=== PATIENT | female | born 1940 | race Caucasian/White ===

== ENCOUNTER 2021-04-20 18:25 | Inpatient (IN) | payer OTHER ==
--- OUTSIDE RECORDS SUMMARY | 2021-04-20 18:29 | XMS REPORT | Continuity of Care Document ---
:1940 Author Organization [facility] t Address [address] [place] [address] Dr. [address] [place] [address] Care Team Providers Name Role Phone Jia-Manav_A_AH Attending Clinician Unavailable Antonio Freedman MD Attending Clinician Doctor Unassigned, Name Attending Clinician Unavailable Andreas Naranjo MD Attending Clinician Station, Heart Attending Clinician Unavailable 1, Lab Attending Clinician Unavailable Magaly_ESTRELLA Admitting Clinician Unavailable Antonio Freedman MD Admitting Clinician Payers Payer Name Policy Type Policy Number Effective Date Expiration Date S [facility] [place] - [id number] 2019 [place] 00:00:00 (MEDICARE REPLACEMENT/ADVANT AGE - HMO) Problems Condition Condition Condition Status Onset Resolution Last Treating Co mments Source Name Details Category Date Date Treatment Clinician Date Post-op Post-op Disease Active Univers pain pain 9-18 ity of 00:00: [place] 00 Medical Branch Allergies, Adverse Reactions, Alerts Allergy Allergy Status Severity Reaction(s) Onset Inactive Treating Comm ents Source Name Type Date Date Clinician Aspirin Propensi Active Rash Univers ty to 302 ity of adverse 00:00: [place] reaction 00 Medical s Branch Clindamy Propensi Active Nausea Univer s caron ty to and/or 3- ity of adverse Vomiting 00:00: [place] reaction Medical s Branch Codeine Propensi Active Nausea Univers ty to and/or 3 ity of adverse Vomiting 00:00: [place] reaction Medical s Branch Iodine Propensi Active Rash Univers ty to 3-02 ity of adverse 00:00: [place] reaction Medical s Branch Penicill Propensi Active Rash Univer s ins ty to 06-02 ity of adverse 00:00: [place] reaction 00 Medical s Branch Social History Social Habit Start Date Stop Date Quantity Comments Source Alcohol intake [facility] Sex Assigned At Uni versity [facility] Smoking Status Start Date Stop Date Source Never smoker [facility] Medications Ordered Filled Start Stop Current Ordering Indication Dosage Frequency Signature Comments Components Source Medication Medication Date Date Medication? Clinician (SIG) Name Name amLODIPine 2019- No 10mg Take 10 mg Univers (NORVASC) 12-20 by mouth ity o f 10 mg 21:38: 00:00 daily. [place] tablet 32 :00 Medical Branch ferrous 2019- No 325mg Take 325 Univ ers sulfate 325 12-20 mg by ity of mg (65 mg 21:38: 00:00 mouth [place] iron) 32 :00 daily. Medical tablet Branch Cholecalcif 2019- No 2000U Take 2,000 Univers sary, 12-20 Units by ity of Vitamin D3, 21:38: 00:00 [place] 2,000 [place] 32 :00 daily. Medical capsule Branch vit 2019- No 1{tbl} Take 1 Univers C/E/Zn/eugene 12-20 tablet by it y of r/lutein/ze 21:38: 00:00 [place] 2 [place] axan 32 :00 (two) Medical (PRESERVISI times Branch ON AREDS-2 daily. ORAL) PARoxetine 2019- No 10mg Take 10 mg Univers 10 mg 12-20 by mouth ity of tablet 21:38: 00:00 daily. [place] 32 :00 Medical Branch famotidine 2019- No 10mg Take 10 mg Univers 10 mg 12-20 by mouth ity of tablet 21:38: 00:00 daily. [place] 32 :00 Medical Branch multivit-mi 2019- No 1{tbl} Take 1 U nivers n/iron/foli 12-20 tablet by it y of c/lutein 21:38: 00:00 mouth [place] (CENTRUM 32 :00 daily. Medical SILVER Branch WOMEN ORAL) calcium 2019- No 1{tbl} Take 1 Unive rs carbonate/v 12-20 tablet by it y of itamin D2 21:38: 00:00 mouth [place] (CALCIUM 32 :00 daily. Medical 600 + D Branch ORAL) Cranberry 2019- No 1{capsu Take 1 Un nancy 500 mg Cap 12-20 le} capsule by it y of 21:38: 00:00 mouth [place] 32 :00 daily. Medical Branch traMADol 50 2019- No 50mg Take 50 mg Univers mg tablet 12-20 by mouth ity o f 21:38: 00:00 as needed. [place] 32 :00 Medical Branch ibuprofen 2019- No 600mg Take 600 Un nancy 600 mg 12-20 mg by ity of tablet 21:38: 00:00 mouth 3 [place] 32 :00 (three) Medical times Branch daily as needed. PARoxetine Yes 10mg 10 mg, Unive rs (PAXIL) 12-20 Oral, ity of tablet 10 14:00: DAILY, [place] mg 00 First dose Medical on Mon Branch 12/20/18 at 0900, Until Discontinu ed, Routine amLODIPine Yes 10mg 10 mg, Unive rs (NORVASC) 12-20 Oral, ity of tablet 10 14:00: DAILY, [place] mg 00 First dose Medical on Mon Branch 12/20/18 at 0900, Until Discontinu ed, Routine phenytoin Yes 200mg 200 mg, Univ ers Extended 12-20 Oral, BID, ity o f (DILANTIN 01:00: [place] KAPSEAL[place] 00 on Mon Medical capsule 200 12/19/18 at Br anch mg 1999, Until Discontinu ed, Routine docusate Yes 100mg 100 mg, Unive rs (COLACE) 12-20 Oral, ity of capsule 100 01:00: Q12H, [place] mg 00 First dose Medical on Mon Branch 12/19/18 at 2000, Until Discontinu ed, Routine enoxaparin Yes 30mg 30 mg, Unive rs (LOVENOX) 12-20 Subcutaneo ity of injection 01:00: us, Q12H, [place] 30 mg 00 First dose Medical on Mon Branch 12/19/18 at 2000, Until Discontinu ed, Routine lansoprazol 2018- No 30mg Take 30 mg Univers e 12-19 by mouth ity of (PREVACID) 17:53: 00:00 daily. [place] 30 mg 57 :00 Medical capsule Branch HYDROmorpho 0 Yes .5mg 0.5 mg, Uni vers ne 12-19 Slow IV ity of (DILAUDID) 14:37: Push, [place] injection 01 [id number], Medica l 0.5 mg 10 doses, Branch Starting 12/19/18 at 0937, Until Discontinu ed, Routine, Pain (scale 7-10), PACU
Us e approved by (Faculty): ADC PROVIDER ondansetron 2018-0 Yes 4mg 4 mg, Slow Univers (ZOFRAN 12-19 IV Push, ity of (PF)) 14:37: PRN, 1 [place] injection 4 01 dose, Medical mg Starting Branch 12/19/18 at 0937, Until Discontinu ed, Routine, Nausea and Vomiting (N/V), PACU diphenhydrA 2018-0 Yes 25mg 25 mg, Univ ers MINE 12-19 Oral, ity of (BENADRYL) 14:34: Q4HPRN, [place] tablet 25 42 Starting Medica l mg Wed Branch 12/19/18 at 0934, Until Discontinu ed, Routine, Itching HYDROcodone 2018-0 Yes 1{tbl} 1 tablet, Univers -acetaminop -18 Oral, ity of hen (NORCO) 14:33: Q4HPRN, [place] 10-325 mg 54 Starting Medica l tablet 1 Wed Branch tablet 12/19/18 at 0933, Until Discontinu ed, Routine, Pain (scale 7-10) HYDROcodone 2019-0 Yes 1{tbl} 1 tablet, Univers -acetaminop -18 Oral, ity of hen (NORCO 14:33: Q6HPRN, [place] 5) 5-325 mg 51 Starting Medi lexii tablet 1 Wed Branch tablet 12/19/18 at 0933, Until Discontinu ed, Routine, Pain (scale 4-6) ondansetron 2018-0 Yes 4mg 4 mg, Slow Univers (ZOFRAN 18 IV Push, ity of (PF)) 14:33: Q6HPRN, [place] injection 4 03 Starting Medi lexii mg Wed Branch 12/19/18 at 0933, Until Discontinu ed, Routine, Nausea and Vomiting (N/V) sodium Yes PRN, Univers chloride 12-19 Starting ity of 0.9 % 14:00: Wed [place] irrigation 00 12/19/18 at Med ical solution 0900, Branch Until Discontinu ed, Intra-op vancomycin Yes 1.2g 1,200 mg Uni vers (VANCOCIN) 12-19 (1.2 g), ity o f 1,200 mg in 12:00: IV [place] NaCl 0.9% 00 Piggyback, Medi lexii (NS) 250 [address] [facility] [place] piggyback HOLDING ONCE, 1 dose, Starting [facility] 12/19/18 at 0700, Until Discontinu ed, 250 mL
Reas on for Anti-Infec tive: Surgical Prophylaxi s
Surgi lexii Prophylaxi s: Orthopaedi c
Durat ion of therapy: within 24 hours of surgery lactated Yes 1000mL at 100 Unive rs ringers IV 12-19 mL/hr, ity of infusion 11:30: 1,000 mL, [place] 1,000 mL 00 IV Medical Infusion, Branch CONTINUOUS , Starting [facility] 12/19/18 at 0630, Until Discontinu ed, Routine, DSU Pre-op celecoxib 2018- No 400mg 400 mg, Uni vers (CELEBREX) 12-19 Oral, ity of capsule 400 11:30: 11:39 ONCE, 1 [place] mg 00 :00 dose, [facility] Medical 12/19/18 at Branch 0630, Routine, DSU Pre-op
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
Dea ason for Non-Formul gagandeep Use: SPECIFIC INDICATION FOR NONFORMULA RY PRODUCT gabapentin 2019- No 300mg 300 mg, Un nancy (NEURONTIN) 12-19 Oral, ity of capsule 300 11:30: 11:38 ONCE, 1 [place] mg 00 :00 dose, [facility] Medical 12/19/18 at Branch 0630, Routine, DSU Pre-op lansoprazol Yes 30mg Take 30 mg Univers e 12-14 by mouth ity of (PREVACID) 14:49: daily. [place] 30 mg 45 Medical capsule Branch amLODIPine 2019-0 Yes 10mg Take 10 mg U nivers (NORVASC) 9-13 by mouth ity of 10 mg 14:49: daily. [place] tablet 45 Medical Branch lansoprazol 2019-0 Yes 30mg Take 30 mg Univers e 9-13 by mouth ity of (PREVACID) 14:49: daily. [place] 30 mg 45 Medical capsule Branch amLODIPine 20190 Yes 10mg Take 10 mg U nivers (NORVASC) 9-13 by mouth ity of 10 mg 14:49: daily. [place] tablet 45 Medical Branch lansoprazol 20190 Yes 30mg Take 30 mg Univers e 9-13 by mouth ity of (PREVACID) 14:49: daily. [place] 30 mg 45 Medical capsule Branch amLODIPine 0 Yes 10mg Take 10 mg U nivers (NORVASC) 9-13 by mouth ity of 10 mg 14:49: daily. [place] tablet 45 Medical Branch lansoprazol 2019-0 Yes 30mg Take 30 mg Univers e 9-13 by mouth ity of (PREVACID) 14:49: daily. [place] 30 mg 45 Medical capsule Branch amLODIPine 0 Yes 10mg Take 10 mg U nivers (NORVASC) 9-13 by mouth ity of 10 mg 14:49: daily. [place] tablet 45 Medical Branch lansoprazol 2019-0 Yes 30mg Take 30 mg Univers e 9-13 by mouth ity of (PREVACID) 14:49: daily. [place] 30 mg 45 Medical capsule Branch amLODIPine 0 Yes 10mg Take 10 mg U nivers (NORVASC) 9-13 by mouth ity of 10 mg 14:49: daily. [place] tablet 45 Medical Branch lansoprazol 2019-0 Yes 30mg Take 30 mg Univers e 9-13 by mouth ity of (PREVACID) 14:49: daily. [place] 30 mg 45 Medical capsule Branch amLODIPine 2019-0 Yes 10mg Take 10 mg U nivers (NORVASC) 9-13 by mouth ity of 10 mg 14:49: daily. [place] tablet 45 Medical Branch lansoprazol 2019-0 Yes 30mg Take 30 mg Univers e 9-13 by mouth ity of (PREVACID) 14:49: daily. [place] 30 mg 45 Medical capsule Branch amLODIPine Yes 10mg Take 10 mg U nivers (NORVASC) 9-13 by mouth ity of 10 mg 14:49: daily. [place] tablet 45 Medical Branch irbesartan 2018-0 2019- No 300mg Take 300 U nivers 300 mg 9- 09-19 mg by ity of tablet 00:00: 00:00 mouth [place] 00 :00 daily. Medical Branch methylPREDN 2016-0 Yes 84mg Take 21 Uni vers ISolone 3-02 Tabs by ity of (MEDROL, 00:00: mouth [place] JEREMIAH,) 4 mg 00 SEE-INSTRU Med ical tablets CTIONS. Branch follow package directions methylPREDN 2016-0 Yes 84mg Take 21 Uni vers ISolone 3-02 Tabs by ity of (MEDROL, 00:00: mouth [place] JEREMIAH,) 4 mg 00 SEE-INSTRU Med ical tablets CTIONS. Branch follow package directions methylPREDN 2016-0 Yes 84mg Take 21 Uni vers ISolone 3-02 Tabs by ity of (MEDROL, 00:00: mouth [place] JEREMIAH,) 4 mg 00 SEE-INSTRU Med ical tablets CTIONS. Branch follow package directions methylPREDN 2016-0 Yes 84mg Take 21 Uni vers ISolone 3-02 Tabs by ity of (MEDROL, 00:00: mouth [place] JEREMIAH,) 4 mg 00 SEE-INSTRU Med ical tablets CTIONS. Branch follow package directions methylPREDN 2016-0 Yes 84mg Take 21 Uni vers ISolone 3-02 Tabs by ity of (MEDROL, 00:00: mouth [place] JEREMIAH,) 4 mg 00 SEE-INSTRU Med ical tablets CTIONS. Branch follow package directions methylPREDN 2016-0 Yes 84mg Take 21 Uni vers ISolone 3-02 Tabs by ity of (MEDROL, 00:00: mouth [place] JEREMIAH,) 4 mg 00 SEE-INSTRU Med ical tablets CTIONS. Branch follow package directions methylPREDN 2016-0 Yes 84mg Take 21 Uni vers ISolone 3-02 Tabs by ity of (MEDROL, 00:00: mouth [place] JEREMIAH,) 4 mg 00 SEE-INSTRU Med ical tablets CTIONS. Branch follow package directions methylPREDN 2016-0 2019- No 84mg Take 21 Un nancy ISolone 3-02 09-18 Tabs by ity of (MEDROL, 00:00: 00:00 mouth [place] JEREMIAH,) 4 mg 00 :00 SEE-INSTRU [facility] follow package directions celecoxib 20160 Yes Univers (CELEBREX) 2-26 ity of 200 mg 00:00: [place] capsule Medical Branch clopidogrel 2016-0 Yes Univer s (PLAVIX) 75 2-26 ity of mg tablet 00:00: [place] [facility] Branch celecoxib 2016-0 Yes Univers (CELEBREX) 2-26 ity of 200 mg 00:00: [place] capsule Medical Branch clopidogrel 0 Yes Univer s (PLAVIX) 75 2-26 ity of mg tablet 00:00: [place] [facility] Branch celecoxib 2015-0 Yes Univers (CELEBREX) 2-26 ity of 200 mg 00:00: [place] capsule [facility] clopidogrel 2015-0 Yes Univer s (PLAVIX) 75 2-26 ity of mg tablet 00:00: [place] [facility] celecoxib 2016-0 Yes Univers (CELEBREX) 2-26 ity of 200 mg 00:00: [place] capsule [facility] Branch clopidogrel 2015-0 Yes Univer s (PLAVIX) 75 2-26 ity of mg tablet 00:00: [place] 00 Medical Branch celecoxib 2016-0 Yes Univers (CELEBREX) 2-26 ity of 200 mg 00:00: [place] capsule Medical Branch clopidogrel 2016-0 Yes Univer s (PLAVIX) 75 2-26 ity of mg tablet 00:00: [place] [facility] celecoxib 2016-0 Yes Univers (CELEBREX) 2-26 ity of 200 mg 00:00: [place] capsule Medical Branch clopidogrel 2016-0 Yes Univer s (PLAVIX) 75 2-26 ity of mg tablet 00:00: [place] 00 [facility] celecoxib 2016-0 Yes Univers (CELEBREX) 2-26 ity of 200 mg 00:00: [place] capsule 00 Medical Branch clopidogrel 2016-0 Yes Univer s (PLAVIX) 75 2-26 ity of mg tablet 00:00: [place] 00 [facility] Branch celecoxib 2016-0 2019- No Univers (CELEBREX) 2-26 09-18 ity of 200 mg 00:00: 00:00 [place] capsule 00 :00 Medical Branch clopidogrel 2015-0 2019- No Unive rs (PLAVIX) 75 2-26 09-18 ity of mg tablet 00:00: 00:00 [place] 00 :00 Medical Branch traMADOL 0 Yes Univers (ULTRAM) 50 2-25 ity of mg tablet 00:00: Medical Branch traMADOL [id number] Yes Univers (ULTRAM) 50 2-25 ity of mg tablet 00:00: [place] [facility] traMADOL 0 Yes Univers (ULTRAM) 50 2-25 ity of mg tablet 00:00: [place] [facility] traMADOL 0 Yes Univers (ULTRAM) 50 2-25 ity of mg tablet 00:00: [place] [facility] traMADOL 0 Yes Univers (ULTRAM) 50 2-25 ity of mg tablet 00:00: [place] [facility] traMADOL 0 Yes Univers (ULTRAM) 50 2-25 ity of mg tablet 00:00: [place] [facility] traMADOL 0 Yes Univers (ULTRAM) 50 2-25 ity of mg tablet 00:00: [place] [facility] traMADOL 0 2019- No Univers (ULTRAM) 50 2-25 09-18 ity of mg tablet 00:00: 00:00 [place] 00 :00 Medical Branch gentamicin 0 Yes Univers (GENTACIDIN 2-19 ity of ) 0.3 % 00:00: [place] [id number] Medical drops Branch gentamicin 0 Yes Univers (GENTACIDIN 2-19 ity of ) 0.3 % 00:00: [place] ophthalmic Medical drops Branch gentamicin 0 Yes Univers (GENTACIDIN 2-19 ity of ) 0.3 % 00:00: [place] ophthalmic Medical drops Branch gentamicin 20160 Yes Univers (GENTACIDIN 2-19 ity of ) 0.3 % 00:00: [place] ophthalmic Medical drops Branch gentamicin 20160 Yes Univers (GENTACIDIN 2-19 ity of ) 0.3 % 00:00: [place] ophthalmic Medical drops Branch gentamicin 2016-0 Yes Univers (GENTACIDIN 2-19 ity of ) 0.3 % 00:00: [place] ophthalmic Medical drops Branch gentamicin 20160 Yes Univers (GENTACIDIN 2-19 ity of ) 0.3 % 00:00: [place] ophthalmic Medical drops Branch gentamicin 2016-0 2019- No Univer s (GENTACIDIN 2-19 09-18 ity of ) 0.3 % 00:00: 00:00 [place] ophthalmic 00 :00 Medical drops Branch benzonatate 2016-0 Yes Univer s (TESSALON 2-08 ity of PERLES) 100 00:00: [place] mg capsule 00 Medical Branch benzonatate 2016-0 Yes Univer s (TESSALON 2-08 ity of PERLES) 100 00:00: [place] mg capsule 00 Medical Branch benzonatate 2016-0 Yes Univer s (TESSALON 2-08 ity of PERLES) 100 00:00: [place] mg capsule 00 Medical Branch benzonatate 2016-0 Yes Univer s (TESSALON 2-08 ity of PERLES) 100 00:00: [place] mg capsule 00 Medical Branch benzonatate 2016-0 Yes Univer s (TESSALON 2-08 ity of PERLES) 100 00:00: [place] mg capsule 00 Medical Branch benzonatate 2016-0 Yes Univer s (TESSALON 2-08 ity of PERLES) 100 00:00: [place] mg capsule 00 Medical Branch benzonatate 2016-0 Yes Univer s (TESSALON 2-08 ity of PERLES) 100 00:00: [place] mg capsule 00 Medical Branch benzonatate 2016-0 2019- No Unive rs (TESSALON 2-08 09-18 ity of PERLES) 100 00:00: 00:00 [place] mg capsule 00 :00 Medical Branch atenolol 2016-0 Yes Univers (TENORMIN) 1-24 ity of 100 mg 00:00: [place] tablet 00 Medical Branch atenolol 2016-0 Yes Univers (TENORMIN) 1-24 ity of 100 mg 00:00: [place] tablet 00 Medical Branch atenolol 2016-0 Yes Univers (TENORMIN) 1-24 ity of 100 mg 00:00: [place] tablet 00 Medical Branch atenolol 2016-0 Yes Univers (TENORMIN) 1-24 ity of 100 mg 00:00: [place] tablet 00 Medical Branch atenolol 2016-0 Yes Univers (TENORMIN) 1-24 ity of 100 mg 00:00: [place] tablet 00 Medical Branch atenolol 2016-0 Yes Univers (TENORMIN) 1-24 ity of 100 mg 00:00: [place] tablet 00 Medical Branch atenolol 2016-0 Yes Univers (TENORMIN) 1-24 ity of 100 mg 00:00: [place] tablet 00 Medical Branch atenolol 2019- No Univers (TENORMIN) 04-26-18 ity of 100 mg 00:00: 00:00 [place] tablet 00 :00 Medical Branch phenytoin Yes Univers Extended 1-08 ity of (DILANTIN 00:00: [place] KAPSEAL) 00 Medical 100 mg Branch capsule phenytoin Yes Univers Extended 1-08 ity of (DILANTIN 00:00: [place] KAPSEAL) 00 Medical 100 mg Branch capsule phenytoin Yes Univers Extended 1-08 ity of (DILANTIN 00:00: [place] KAPSEAL) 00 Medical 100 mg Branch capsule phenytoin Yes Univers Extended 1-08 ity of (DILANTIN 00:00: [place] KAPSEAL) 00 Medical 100 mg Branch capsule phenytoin Yes Univers Extended 1-08 ity of (DILANTIN 00:00: [place] KAPSEAL) 00 Medical 100 mg Branch capsule phenytoin Yes Univers Extended 1-08 ity of (DILANTIN 00:00: [place] KAPSEAL) 00 Medical 100 mg Branch capsule phenytoin Yes Univers Extended 1-08 ity of (DILANTIN 00:00: [place] KAPSEAL) 00 Medical 100 mg Branch capsule phenytoin 2019- No 200mg Take 200 Un nancy Extended 1-08 09-19 mg by ity of (DILANTIN 00:00: 00:00 mouth 2 [place] KAPSEAL) 00 :00 (two) Medical 100 mg times Branch capsule daily. No known No Univers medications it of [facility] Vital Signs Vital Name Observation Time Observation Value Comments Source Systolic blood 2018-12-20 16:19:00 131 mm[Hg] Univer sity of pressure [facility] Diastolic blood 2018-12-20 16:19:00 57 mm[Hg] Unive rsity of pressure [facility] Heart rate 2018-12-20 16:19:00 102 /min [facility] Body temperature 2018-12-20 16:19:00 36.89 [facility] Res[facility] rate 2018-12-20 16:19:00 20 /min [facility] Oxygen saturation in 2018-12-20 16:19:00 96 /min [facility] blood by [facility] Pulse oximetry Branch Body height 2018-12-19 21:00:00 167.6 cm [facility] Body weight 2018-12-19 21:00:00 67.132 kg [facility] BMI 2018-12-19 21:00:00 23.89 kg/m2 [facility] Procedures Procedure Date / Time Performing Clinician Source Performed MAGNESIUM 2018-12-20 09:28:00 Shannan Jaffe [place] o f [facility] BASIC METABOLIC PANEL (NA, 2018-12-20 09:28:00 Shannan Jaffe [facility] K, CL, CO2, GLUCOSE, BUN, Medica l Branch CREATININE, [place]) XR HIP 1 VW RIGHT 2018-12-19 14:16:00 Lance Freedman [facility] TOTAL HIP ARTHROPLASTY 2018-12-19 12:02:00 Lance Freed[facility] 2018-12-19 11:38:00 Lance Freedman [facility] TYPE AND SCREEN 2018-12-19 11:25:00 Lance Freedman [facility] HOSPITAL ADMISSION 2018-12-19 05:01:00 Doctor Amarjit [facility] Name Medical [place] XR CHEST 1 VW 2018-12-17 18:46:35 Lance Freedman [facility] CBC WITH DIFFERENTIAL 2018-12-17 18:43:00 Talat Polo [facility] PROTHROMBIN TIME / INR 2018-12-17 18:43:00 Talat Polo [facility] ACTIVATED PARTIAL THRMPLAS 2018-12-17 18:43:00 Willy Polo [facility] NOTICE OF BILLING 2018-12-17 17:28:51 Doctor Amarjit, [facility] PRACTICES FOR MEDICARE [place] [facility] ranlorin PATIENTS [facility] PATIENT FINANCIAL 2018-12-17 17:28:30 Doctor Amarjit [facility] POLICY [place] [facility] NO SHOW OR MISSED 2018-12-17 17:28:12 Doctor Amarjit [facility] APPOINTMENT POLICY [place] [facility] h ACKNOWLEDGEMENT CONSENT/REFUSAL FOR 2018-12-17 17:27:39 Doctor Unassigned, [facility] DIAGNOSIS AND TREATMENT [place] [facility] ASSIGNMENT OF BENEFITS 2018-12-17 17:27:14 [facility] [place] [facility] Encounters Start End Encounter Admission Attending Care Care Encounter Source Date/Time Date/Time Type Type Clinicians Facility Department ID 2019-05-22 2019-05-22 Outpatient Jia-Mbayo VFP VFP [id number] [facility] 07:22:00 07:22:00 _A_AH [id number] Family Practic e 2019-05-22 2019-05-22 Outpatient Jia-Mbayo VFP VFP [id number] [facility] 07:22:00 07:22:00 _A_AH [id number] Family Practic e 2019-05-22 2019-05-22 Outpatient Jia-Mbayo VFP VFP [id number] [facility] 07:22:00 07:22:00 _A_AH [id number] Family Practic e 2018-12-19 2018-12-20 [facility] [id number] Univers 06:17:00 15:28:00 Encounter Lance Antonio Story [id number] ity of [place] [address] [place] [address] [id number] [facility] 081 Branch 2018-12-19 2018-12-19 Orders Doctor VALENZUELA [id number] Univers 00:00:00 00:00:00 Only UnassWEN jimenez [id number] ity of [place] [facility] [id number] [place] [address] [id number] [facility] 009 Branch 2018-12-17 2018-12-17 Hospital Lázaro Naranjo [facility] [id number] Univers 09:00:00 23:59:00 Encounter Lance Freedman 350. 1.13.10 ity of [facility] [place], [facility] Heart [place] 4.2.7.2.686 [facility] [id number] [facility] 051 Branch 2018-12-17 2018-12-17 [employer] 1, Adc Lab [facility] [id number] [facility] [place] [facility] 12:41:15 13:44:33 Visit Lance Freedman 350.1. 13.10 ity of [place] 4.2.7.2.686 [facility] [id number] [facility] 353 Branch 2018-12-17 2018-12-17 [facility] [place] [facility] [id number] Univers 08:00:00 08:59:00 Encounter Lance Story [id number] ity of [place] 4.2.7.2.686 [facility] [id number] [facility] 807 Branch Results Test Description Test Time Test Comments Results Result Comments Source BASIC METABOLIC PANEL (NA, K, CL, CO2, GLUCOSE, BUN, 2018-12 12:07:00 CREATININE, CA) Test Item Value Reference Range Interpretation Comme nts NA (test code = 3640760198) 137 mmol/L 135-145 K (test code = 0845992736) 4.1 mmol/L 3.5-5 CL (test code = 0990136071) 105 mmol/L 98-108 CO2 TOTAL (test code = 27 mmol/L 23-31 1078019432) AGAP (test code = 2170954495) 2-16 BUN (test code = 7323038181) 13 mg/dL 7-23 GLUCOSE (test code = 7502923355) 93 mg/dL 70-110 CREATININE (test code = 0.59 mg/dL 0.5-1.04 4986051281) CALCIUM (test code = 7125686943) 10.1 mg/dL 8.6-10.6 eGFR Calculation (Non- mL/min/1.73m2 [place]z) (test code = 3541646009) eGFR Calculation ( mL/min/1.73m2 [place]) (test code = 7435230747) ANA LUISA (test code = ANA LUISA) Association of Glomerular Filtration Rate (GFR) and Staging of Kidney Disease*+ +- + +| GFR (mL/min/1.73 m2)?| With Kidney Damage?|?Without Kidney Damage+ +--- + +|?>90?|?Stage one?|? Normal?+ +-- + +|?60-89?|?Stage two?|? Decreased GFR? + +--------- + ----+|?30-59?|?Stage three?|? Stage three? + +--------- + ----+|?15-29?|?Stage four? |? Stage four?+ +---- + ---------+|?<15 (or dialysis)?|?Stage five? |? Stage five?+ +---- + ---------+*Each stage assumes the associated GFR level has been in effect for at least three months.?Stages 1 to 5, with or without kidney disease, indicate chronic kidney disease.Notes: Determination of stages one and two (with eGFR >59mL/min/1.73 m2) requires estimation of kidney damage for at least three months as defined by structural or functional abnormalities of the kidney, manifested by either:Pathological abnormalities or Markers of kidney damage (including abnormalities in the composition of the blood or urine or abnormalities in imaging tests). [facility]00 Test Item Value Reference Range Interpretation Comments MAGNESIUM (test code = 0436672033) 1.7 mg/dL 1.7-2.4 Lab Interpretation (test code = Normal 91362-8) [facility] [facility] VW [id number] 14:26:28HISTORY: Right hip replacement. FINDINGS: AP view of the right hip obtained in OR showed resection of headand neck of right femur with metallic cup inserted into the acetabulum andmetallic measuring chilli pepper shaped device in the shaft of the femur.Additional instruments are seen projected over the hip and pelvis.. [facility], Radiant Results Inft User - 12/19/2018 9:26 AM CDTHISTORY: Right hip replacement.FINDINGS: AP view of the right hip obtained in OR showed resection of headand neck of right femur with metallic cup inserted into the acetabulum andmetallic measuring chilli pepper shaped device in the shaft of the femur.Additional instruments are seen projected over the hip and pelvis.. [facility] Screen - ONCE [id number] 12:25:49 Test Item Value Reference Range Interpretation Comments ABO & RH (test AB Positive Performed at [facility] code = 20) Laboratory [facility] [address] [place] [id number] Free: [phone] A No. [id number] IAT (test code = Negative Performed a t [facility] 1185) Laboratory [facility] [address] [place] [id number] Free: [phone] A No. [id number] [facility] HospitalABORH [id number] 12:04:37 Test Item Value Reference Range Interpretation Comments ABO & RH (test AB Positive Performed at [facility] code = 20) Laboratory Serv [facility] [address] [place] [id number] Free: [phone] A No. [id number] [facility] HospitalaPTT2019-09-16 19:12:00 Test Item Value Reference Range Interpretation Comments APTT Patient (test See_Comment [Automat ed code = 3173-2) message] The system which generated this result transmitted reference range : 23 - 38 Seconds . The reference range was not used to interpr et this result as normal/abnormal . ANA LUISA (test code = ANA LUISA) The [facility] patient population mean normal value for aPTT is 30 seconds. Lab Interpretation Normal (test code = 64057-2) [facility]2019-09-16 19:12:00 Test Item Value Reference Range Interpretation Comments APTT Patient (test See_Comment [Automat ed code = 3173-2) message] The system which generated this result transmitted reference range : 23 - 38 Seconds . The reference range was not used to interpr et this result as normal/abnormal . ANA LUISA (test code = ANA LUISA) The [facility] patient population mean normal value for aPTT is 30 seconds. Lab Interpretation Normal (test code = 18381-9) [facility] HospitalPROTHROMBIN TIME / [id number] 19:10:00 Test Item Value Reference Range Interpretation Comments PROTIME PATIENT (test See_Comment [Auto mated message] code = 5964-2) The system wh ich generated this result transmitted ref erence range: 12.0 - 1 4.7 Seconds. The re ference range was not u sed to interpret this result as normal/abnor mal. INR (test code = 6301-6) Nor mal INR <1.1; Warfarin Therap eutic range 2.0 to 3. 0 or 2.5 to 3.5, dep ending upon the indica tions. Lab Interpretation (test Normal code = 22285-3) [facility] HospitalPROT[facility]OM[facility] TIME / [id number] 19:10:00 Test Item Value Reference Range Interpretation Comments PROTIME PATIENT (test See_Comment [Auto mated message] code = 5964-2) The system wh ich generated this result transmitted ref erence range: 12.0 - 1 4.7 Seconds. The re ference range was not u sed to interpret this result as normal/abnor mal. INR (test code = 6301-6) Nor mal INR <1.1; Warfarin Therap eutic range 2.0 to 3. 0 or 2.5 to 3.5, dep ending upon the indica tions. Lab Interpretation (test Normal code = 27086-4) [facility] HospitalCB WITH [id number] 18:57:00 Test Item Value Reference Range Interpretation Comments WBC (test code = See_Comment [Automated 8390-2) message] The sy stem which generated this result transmitted reference range : 4.30 - 11.10 10*3/?L. The reference range was not used to interpret this result as normal/abnormal . RBC (test code = See_Comment L [Automated 349-8) message] The sy stem which generated this result transmitted reference range : 3.93 - 5.25 10*6/?L. The reference range was not used to interpret this result as normal/abnormal . HGB (test code = 11.5 g/dL 11.6-15 L 718-7) HCT (test code = 34.4 % 35.7-45.2 L 4544-3) MCV (test code = 94.2 fL 80.6-95.5 787-2) MCH (test code = 31.5 pg 25.9-32.8 785-6) MCHC (test code = 33.4 g/dL 31.6-35.1 786-4) RDW-SD (test code = 41.9 fL 39-49.9 81432-9) RDW-CV (test code = 12.1 % 12-15.5 788-0) PLT (test code = See_Comment [Automated 777-3) message] The sy stem which generated this result transmitted reference range : 166 - 358 10*3/ ?L. The reference r torrey was not used to interpret this result as normal/abnormal . MPV (test code = 8.9 fL 9.5-12.9 L 65116-0) NRBC/100 WBC (test See_Comment [Automat ed code = 4308299589) message] The system which generated this result transmitted reference range : 0.0 - 10.0 /100 WBCs. The refer ence range was not u sed to interpret th is result as normal/abnormal . NRBC x10^3 (test code <0.01 See_Comment [Auto mated = 8186954962) message] The s ystem which generated this result transmitted reference range : 10*3/?L. The reference range was not used to interpret this result as normal/abnormal . GRAN MAT (NEUT) % 71.0 % (test code = 770-8) IMM GRAN % (test code 0.20 % = 0879768591) LYMPH % (test code = 17.9 % 736-9) MONO % (test code = 9.4 % 5905-5) EOS % (test code = 0.9 % 713-8) BASO % (test code = 0.6 % 706-2) GRAN MAT x10^3(ANC) 3.32 10*3/uL 1.88-7.09 (test code = 9213935776) IMM GRAN x10^3 (test <0.03 0-0.06 code = 0475700048) LYMPH x10^3 (test code 0.84 10*3/uL 1.32-3.29 L = 731-0) MONO x10^3 (test code 0.44 10*3/uL 0.33-0.92 = 742-7) EOS x10^3 (test code = 0.04 10*3/uL 0.03-0.39 711-2) BASO x10^3 (test code 0.03 10*3/uL 0.01-0.07 = 704-7) Lab Interpretation Abnormal (test code = 00420-0) [facility] WITH [id number] 18:57:00 Test Item Value Reference Range Interpretation Comments WBC (test code = See_Comment [Automated 6690-2) message] The sy stem which generated this result transmitted reference range : 4.30 - 11.10 10*3/?L. The reference range was not used to interpret this result as normal/abnormal . RBC (test code = See_Comment L [Automated 789-8) message] The sy stem which generated this result transmitted reference range : 3.93 - 5.25 10*6/?L. The reference range was not used to interpret this result as normal/abnormal . HGB (test code = 11.5 g/dL 11.6-15 L 718-7) HCT (test code = 34.4 % 35.7-45.2 L 4544-3) MCV (test code = 94.2 fL 80.6-95.5 787-2) MCH (test code = 31.5 pg 25.9-32.8 785-6) MCHC (test code = 33.4 g/dL 31.6-35.1 786-4) RDW-SD (test code = 41.9 fL 39-49.9 51273-6) RDW-CV (test code = 12.1 % 12-15.5 788-0) PLT (test code = See_Comment [Automated 777-3) message] The sy stem which generated this result transmitted reference range : 166 - 358 10*3/ ?L. The reference r torrey was not used to interpret this result as normal/abnormal . MPV (test code = 8.9 fL 9.5-12.9 L 01242-2) NRBC/100 WBC (test See_Comment [Automat ed code = 6785918978) message] The system which generated this result transmitted reference range : 0.0 - 10.0 /100 WBCs. The refer ence range was not u sed to interpret th is result as normal/abnormal . NRBC x10^3 (test code <0.01 See_Comment [Auto mated = 8958574869) message] The s ystem which generated this result transmitted reference range : 10*3/?L. The reference range was not used to interpret this result as normal/abnormal . GRAN MAT (NEUT) % 71.0 % (test code = 770-8) IMM GRAN % (test code 0.20 % = 6821169017) LYMPH % (test code = 17.9 % 736-9) MONO % (test code = 9.4 % 5905-5) EOS % (test code = 0.9 % 713-8) BASO % (test code = 0.6 % 706-2) GRAN MAT x10^3(ANC) 3.32 10*3/uL 1.88-7.09 (test code = 9044273249) IMM GRAN x10^3 (test <0.03 0-0.06 code = 1556518083) LYMPH x10^3 (test code 0.84 10*3/uL 1.32-3.29 L = 731-0) MONO x10^3 (test code 0.44 10*3/uL 0.33-0.92 = 742-7) EOS x10^3 (test code = 0.04 10*3/uL 0.03-0.39 711-2) BASO x10^3 (test code 0.03 10*3/uL 0.01-0.07 = 704-7) Lab Interpretation Abnormal (test code = 38875-6) [facility] HospitalXR [facility]ST 1 [id number] 18:49:57* * * * * * * * ORIGINAL REPORT * * * * * * * *CHEST ONE VIEW HISTORY:?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 FINDINGS: Lungs are slightly hyperinflated but clear. Heart size andmediastinal silhouette are normal. The aorta is tortuous. No pleuraleffusion or pneumothorax is seen. Scoliosis of the lower thoracic spine is seen with convexity to the left. CONCLUSIONS:1. No acute cardiopulmonary disease.2. Mild obstructive lung disease [facility], RadiantResults Inft User - 12/17/2018 1:50 PM CDT* * * * * * * * ORIGINAL REPORT * * * * * * * *CHEST ONE VIEWHISTORY: Preop for primary osteoarthritis of the right hipTECHNIQUE: AP view of the chest is obt ained.FINDINGS: Lungs are slightly hyperinflated but clear. Heart size andmediastinal silhouette arenormal. The aorta is tortuous. No pleuraleffusion or pneumothorax is seen.Scoliosis of the lower thoracic spine is seen with convexity to the left.CONCLUSIONS:1. No acute cardiopulmonary disease.2. Mild obstructive lung diseaseUnSet[facility]"
[2021-04-20] MEDS ORDERED: GLUCAGON 1 MG/VIAL ONE (18:53)
[2021-04-20] MEDS ORDERED: FAMOTIDINE 20 MG/2 ML VIAL IV ONE (18:53)
[2021-04-20] MEDS ORDERED: NA CHLORIDE 0.9% 500 ML ONE (18:53)
[2021-04-20] MEDS ORDERED: ONDANSETRON 4 MG/2 ML VIAL ONE (18:53)
[2021-04-20] MEDS ORDERED: MORPHINE 2 MG/ML SYR ONE (18:53)
[2021-04-20] MEDS ORDERED: NA CHLORIDE 0.9% 1,000 ML ONE (18:54)
[2021-04-20 19:06] LABS: Absolute Lymphocytes (CBC) 0.7 K/uL (0.7-4.9); Lymphocytes % 6.1 % (15.3-44.8); MPV 6.3 fL (7.6-11.3); RBC Red Blood Cell Count 2.97 M/uL (3.86-4.86)
[2021-04-20 19:07] LABS: Protime INR 0.95
[2021-04-20 19:30] LABS: ALT/SGPT 19 U/L (12-78); AST/SGOT 9 U/L (15-37); Albumin 3.2 g/dL (3.4-5.0); Alkaline Phosphatase 121 U/L (45-117); Bicarbonate 23 mmol/L (21-32); Bilirubin Direct < 0.1 mg/dL (0-0.2); Bilirubin Total 0.2 mg/dL (0.2-1.0); Glucose Level 169 mg/dL (74-106); NT PRO-BNP 394 pg/mL (<450); Potassium 4.2 mmol/L (3.5-5.1); Protein, Total 6.6 g/dL (6.4-8.2); Sodium Level 136 mmol/L (136-145)
[2021-04-20 19:37] LABS: BUN Blood Urea Nitrogen 27 mg/dL (7-18)
[2021-04-20] MEDS ORDERED: NA CHLORIDE 0.9% 250 ML ONE ×2 (19:44→23:59)
[2021-04-20] MEDS ORDERED: PANTOPRAZOLE 40 MG INJ ONE (19:44)
--- NOTE | 2021-04-20 19:59 | RAD REPORT ---
EXAM DESCRIPTION: Dipak Single View04/20/2021 7:42 pm CLINICAL HISTORY: Chest pain COMPARISON: 2016 FINDINGS: The lungs appear clear of acute infiltrate. The heart is mildly enlarged IMPRESSION: No acute abnormalities displayed
--- NOTE | 2021-04-20 21:09 | RAD REPORT ---
EXAM DESCRIPTION: CT - Abdomen Pelvis W Contrast - 04/20/2021 8:42 pm CLINICAL HISTORY: Abdominal pain hematemesis COMPARISON: none. TECHNIQUE: Computed axial tomography of the abdomen pelvis was obtained. 100 cc Isovue-300 was admin istered intravenously. Oral contrast was not requested which limits evaluation of bowel. All CT scans are performed using dose optimization technique as appropriate and may include automated exposure control or mA/KV adjustment according to patient size. FINDINGS: Several tiny hepatic cysts. Spleen, pancreas and left adrenal gland are unremarkable. 3.6 centimeter right adrenal mass. Small renal cysts. Cortical thinning involves the left kidney. Calcified plaque proximal left renal a rtery results in a moderate stenosis. Cholecystectomy. Common bile duct is dilated. Bilateral hip arthroplasties. Artifact from the hardware obscures evaluation of portions of lower pel vis. Ventral hernia to the left of midline contains a small portion of stomach. No obstruction. The neck m easures 2 centimeters. Smaller ventral hernia to the right of midline at this level. There is no evidence of diverticulitis. Small hiatal hernia IMPRESSION: Prominence of the common bile duct. This may be a normal finding in elderly patient stat us post cholecystectomy. Pathology such as stricture or nonvisualized stone can also result in this a ppearance and should be correlated clinically with appropriate lab values 3.6 centimeter right adrenal mass may represent an adenoma or malignancy. Nonemergent MRI recommended for further evaluation Left renal cortical thinning could be secondary to prior inflammation or ischemia. Ventral hernias as described above
--- NOTE | 2021-04-20 21:16 | ER ---
Nurse's Notes [facility] Name: Mary Mendoza Age: 80 yrs Sex: Female : 1940 Arrival Date: 04/20/2021 Time: 18:28 Bed 3 Private MD: Diagnosis: Hematemesis;Anemia, unspecified;Upper abdominal pain, unspecified Presentation: 04/20 18:47 Chief complaint: Patient states: Upper abdominal pain, vomiting and chest pressure. At lunch she was eating carrots and broccoli and swallowed one of them whole. Vomit has a dark look to it. She takes plavix. Coronavirus screen: Vaccine status: Patient reports being unvaccinated. Client denies travel out of the [place] in the last 14 days. Ebola Screen: Patient negative for fever greater than or equal to 101.5 degrees Fahrenheit, and additional compatible Ebola Virus Disease symptoms Patient denies exposure to infectious person. Patient denies travel to an Ebola-affected area in the 21 days before illness onset. Initial Sepsis Screen: Does the patient meet any 2 criteria? No. Patient's initial sepsis screen is negative. Does the patient have a suspected source of infection? No. Patient's initial sepsis screen is negative. Risk Assessment: Do you want to hurt yourself or someone else? Patient reports no desire to harm self or others. Onset of symptoms was April 20, 2021. 18:47 Method Of Arrival: Wheelchair 18:47 Acuity: MJ 3 Triage Assessment: 18:49 General: Appears uncomfortable, Behavior is cooperative. Pain: Complains of pain in xiphoid area. EENT: No deficits noted. No signs and/or symptoms were reported regarding the EENT system. Neuro: Level of Consciousness is awake, alert, obeys commands, Oriented to person, place, time, situation. Cardiovascular: Capillary refill < 3 seconds Rhythm is sinus tachycardia. Respiratory: Airway is patent Respiratory effort is even, unlabored, Respiratory pattern is regular, symmetrical. GI: Abdomen is round Abd is soft Abd is non tender Reports upper abdominal pain, nausea, vomiting. : No deficits noted. No signs and/or symptoms were reported regarding the genitourinary system. Derm: Skin is intact, is thin. Historical: - Allergies: 18:49 PENICILLINS; ww 18:49 Codeine; ww - Home Meds: 18:49 paroxetine HCl 10 mg oral tab 1 tab once daily [Active]; Plavix 75 mg Oral tab ww [Active]; amlodipine 10 mg tab 1 tab once daily [Active]; Vitamin D Oral [Active]; Iron CR Oral [Active]; memantine 10 mg oral tab 1 tab 2 times per day [Active]; irbesartan 300 mg oral tab 1 tab once daily [Active]; phenytoin 50 mg Oral chew 3 tabs daily [Active]; - PMHx: 18:49 Hypertensive disorder; ww - Immunization history:: Adult Immunizations up to date. - Social history:: Smoking status: Patient denies any tobacco usage or history of. - Family history:: not pertinent. - Hospitalizations: : No recent hospitalization is reported. Screenin:53 Abuse screen: Denies threats or abuse. Denies injuries from another. Nutritional ww screening: No deficits noted. Tuberculosis screening: No symptoms or risk factors identified. Fall Risk None identified. Assessment: 19:01 Cardiovascular: Chest pain is located in epigastric area. GI: Bowel sounds present X 4 castro quads. Abd is soft Abd is non tender Reports Pain is 6 out of 10 on a pain scale. vomiting, chest pain. 21:21 General: Appears in no apparent distress. Behavior is cooperative. Pain: Complains of sm5 pain in chest and xiphoid area. Neuro: Level of Consciousness is awake, alert, Oriented to Appropriate for age. GI: Reports nausea. Vital Signs: 18:47 BP 143 / 66; Pulse 107; Resp 15; Temp 96.8; Pulse Ox 100% on R/A; Weight 70.76 kg; ww Height 5 ft. 6 in. (167.64 cm); 21:03 BP 132 / 85; Pulse 108; Resp 20; Pulse Ox 91% on R/A; sf1 18:47 Body Mass Index 25.18 (70.76 kg, 167.64 cm) ww ED Course: 18:28 Patient arrived in ED. mr 18:49 Stevie Martin, RN is Primary Nurse. bp 18:49 Triage completed. ww 18:49 Arm band placed on right wrist. ww 18:53 repack room worker on. Pulse ox on. NIBP on. ww 18:57 Inserted saline lock: 20 gauge in left antecubital area, using aseptic technique. castro 19:02 Patient has correct armband on for positive identification. Bed in low position. castro 19:02 No provider procedures requiring assistance completed. castro 19:[address] MD is Attending Physician. rn 19:43 XRAY Chest (1 view) In Process Unspecified. EDMS 19:43 Lactate Sent. sm5 19:44 Type And Screen Sent. sm5 19:44 Ptt, Activated Sent. sm5 20:42 CT Abd/Pelvis - IV Contrast Only In Process Unspecified. EDMS 21:16 Anton West DO is Hospitalizing Provider. rn Administered Medications: 18:59 Drug: Glucagon 1 mg Route: IVP; Site: left antecubital; castro 19:00 Follow up: Response: No adverse reaction castro 18:59 Drug: NS 0.9% 500 ml Route: IV; Rate: bolus; Site: left antecubital; castro 18:59 Drug: NS 0.9% 1000 ml Route: IV; Rate: 125 ml/hr; Site: left antecubital; castro 18:59 Drug: morphine 2 mg Route: IVP; Site: left antecubital; castro 19:00 Follow up: Response: No adverse reaction castro 19:00 Drug: Pepcid (famotidine) 20 mg Route: IVP; Site: left antecubital; castro 19:01 Follow up: Response: No adverse reaction castro 19:00 Drug: Zofran (Ondansetron) 4 mg Route: IVP; Site: left antecubital; castro 19:00 Follow up: Response: No adverse reaction castro 19:58 Drug: ProTONIX (pantoprazole) 40 mg Route: IVP; Site: left antecubital; sf1 19:58 Drug: ProTONIX (pantoprazole) 8 mg/hr Route: IV; Rate: 25 ml/hr; Site: left antecubital;1 Outcome: 21:16 Decision to Hospitalize by Provider. rn 23:28 Admitted to Med/surg accompanied by nurse, via stretcher, room 223, Report called to sf1 Keren Gomes RN 23:28 Condition: good 23:29 Admitted to [facility] 23:32 Patient left the ED. 1 Signatures: Dispatcher [employer] EDDE Phylicia Santana mr Trey Lane MD MD rn Peltier, Brian, RN RN bp Mazur, Sarah, RN RN sm5 Wood Sophia, RN RN ww Dunia Ross, RN RN Ayana Jeffries, RN RN sf1
--- NOTE | 2021-04-20 21:17 | EDPHYS ---
Physician Documentation [facility] Name: Mary Mendoza Age: 80 yrs Sex: Female : 1940 Arrival Date: 04/20/2021 Time: 18:28 Bed 3 Private MD: ED Physician Trey Lane HPI: 04/20 20:06 This 80 yrs old Female presents to ER via Wheelchair with complaints of Abdominal Pain, rn Vomiting, Weakness. 20:06 The patient presents to the emergency department with nausea, vomiting, abdominal pain. rn Onset: The symptoms/episode began/occurred today. Possible causes: unknown. The symptoms are aggravated by nothing. The symptoms are alleviated by nothing. Associated signs and symptoms: Pertinent positives: abdominal pain, GI bleeding, nausea, vomiting. Severity of symptoms: At their worst the symptoms were moderate in the emergency department the symptoms have improved. The patient has experienced similar episodes in the past. The patient has not recently seen a physician. Patient reports around lunchtime began with epigastric abdominal pain associated with nausea and vomiting, family member states thinks noted some blood. Patient on Plavix. Patient with history of gastric ulcers in the past. Reports generalized weakness and malaise. No fever. Has not had a bowel movement so cannot tell if she had blood in stool. Denies any chest pain. Has had cholecystectomy in the past.. Historical: - Allergies: 18:49 PENICILLINS; ww 18:49 Codeine; ww - Home Meds: 18:49 paroxetine HCl 10 mg oral tab 1 tab once daily [Active]; Plavix 75 mg Oral tab ww [Active]; amlodipine 10 mg tab 1 tab once daily [Active]; Vitamin D Oral [Active]; Iron CR Oral [Active]; memantine 10 mg oral tab 1 tab 2 times per day [Active]; irbesartan 300 mg oral tab 1 tab once daily [Active]; phenytoin 50 mg Oral chew 3 tabs daily [Active]; - PMHx: 18:49 Hypertensive disorder; ww - Immunization history:: Adult Immunizations up to date. - Social history:: Smoking status: Patient denies any tobacco usage or history of. - Family history:: not pertinent. - Hospitalizations: : No recent hospitalization is reported. ROS: 20:06 Constitutional: Negative for fever, chills, and weight loss, Eyes: Negative for injury, rn pain, redness, and discharge, Neck: Negative for injury, pain, and swelling, Cardiovascular: Negative for chest pain, palpitations, and edema, Respiratory: Negative for shortness of breath, cough, wheezing, and pleuritic chest pain, Abdomen/GI: Positive for abdominal pain/nausea/vomiting Back: Negative for injury and pain, : Negative for injury, bleeding, discharge, and swelling, MS/Extremity: Negative for injury and deformity, Skin: Negative for injury, rash, and discoloration, Neuro: Positive for weakness 20:06 All other systems are negative. Exam: 20:06 Constitutional: This is a well developed, well nourished patient who is awake, alert, rn and in no acute distress. Appears pale Head/Face: Normocephalic, atraumatic. Eyes: Pale conjunctiva ENT: Dry mucous membranes Cardiovascular: Tachycardic, regular. Respiratory: SurroundedNo increased work of breathing, no retractions or nasal flaring. Abdomen/GI: Soft, epigastric abdominal tenderness, no rebound Back: No spinal tenderness Skin: Warm, dry MS/ Extremity: Pulses equal, no cyanosis. Neuro: Awake and alert, GCS 15 Vital Signs: 18:47 BP 143 / 66; Pulse 107; Resp 15; Temp 96.8; Pulse Ox 100% on R/A; Weight 70.76 kg; ww Height 5 ft. 6 in. (167.64 cm); 21:03 BP 132 / 85; Pulse 108; Resp 20; Pulse Ox 91% on R/A; sf1 18:47 Body Mass Index 25.18 (70.76 kg, 167.64 cm) ww MDM: 19:06 Patient medically screened. rn 21:14 Differential diagnosis: Nonspecific abd pain, gastritis, gastroenteritis, gastric rn ulcer, gastritis, upper GI bleed. Data reviewed: vital signs, nurses notes, lab test result(s), radiologic studies, CT scan, and as a result, I will admit patient. Counseling: I had a detailed discussion with the patient and/or guardian regarding: the historical points, exam findings, and any diagnostic results supporting the discharge/admit diagnosis, lab results, radiology results, the need for further work-up and treatment in the hospital. Response to treatment: the patient's symptoms have mildly improved after treatment, and as a result, I will admit patient. Admission orders: after a detailed discussion of the patient's condition and case, the admit orders are written by me. 21:14 ED course: CT abdomen without acute findings, most consistent with upper GI bleed, rn possible gastric ulceration, admitted to hospitalist service. 1 unit of blood ordered, another to hold. . 04/20 18:47 Order name: Basic Metabolic Panel [facility] 04/20 18:47 Order name: CBC with Diff; Complete Time: 20:06 [facility] 04/20 18:47 Order name: LFT's [facility] 04/20 18:47 Order name: Magnesium [facility] 04/20 18:47 Order name: NT PRO-BNP [facility] 04/20 18:47 Order name: PT-INR; Complete Time: 20:06 [facility] 04/20 18:47 Order name: Troponin HS [facility] 04/20 19:27 Order name: Ptt, Activated; Complete Time: 20:06 04/20 19:27 Order name: Type And Screen 04/20 19:27 Order name: Lactate; Complete Time: 20:06 04/20 20:52 Order name: COVID-19 SARS RT PCR (Document "Date of Onset" if Symptomatic) 04/20 20:59 Order name: Packed RBC Leukored [facility] 04/20 22:46 Order name: ABO/RH no charge [facility] 04/20 22:47 Order name: Dilantin la1 04/20 18:47 Order name: XRAY Chest (1 view); Complete Time: 20:06 [facility] 04/20 18:47 Order name: EKG; Complete Time: 18:48 [facility] 04/20 18:47 Order name: Cardiac monitoring; Complete Time: 19:00 [facility] 04/20 18:47 Order name: EKG - Nurse/Tech; Complete Time: 18:50 [facility] 04/20 18:47 Order name: IV Saline Lock; Complete Time: 19:00 [facility] 04/20 18:47 Order name: Labs collected and sent; Complete Time: 19:00 [facility] 04/20 18:47 Order name: O2 Per Protocol; Complete Time: 19:00 [facility] 04/20 20:06 Order name: CT Abd/Pelvis - IV Contrast Only; Complete Time: 21:12 04/20 18:47 Order name: O2 Sat Monitoring; Complete Time: 19:00 [facility] 04/20 18:47 Order name: NPO; Complete Time: 18:59 [facility] 04/20 19:52 Order name: Labs - recollect needed: Type and Screen- pen smeared per lab; Complete lp1 Time: 20:23 Administered Medications: 18:59 Drug: Glucagon 1 mg Route: IVP; Site: left antecubital; castro 19:00 Follow up: Response: No adverse reaction castro 18:59 Drug: NS 0.9% 500 ml Route: IV; Rate: bolus; Site: left antecubital; castro 18:59 Drug: NS 0.9% 1000 ml Route: IV; Rate: 125 ml/hr; Site: left antecubital; castro 18:59 Drug: morphine 2 mg Route: IVP; Site: left antecubital; castro 19:00 Follow up: Response: No adverse reaction castro 19:00 Drug: Pepcid (famotidine) 20 mg Route: IVP; Site: left antecubital; castro 19:01 Follow up: Response: No adverse reaction castro 19:00 Drug: Zofran (Ondansetron) 4 mg Route: IVP; Site: left antecubital; castro 19:00 Follow up: Response: No adverse reaction 19:58 Drug: ProTONIX (pantoprazole) 40 mg Route: IVP; Site: left antecubital; sf1 19:58 Drug: ProTONIX (pantoprazole) 8 mg/hr Route: IV; Rate: 25 ml/hr; Site: left antecubital;sf1 Disposition Summary: 04/20/21 21:16 Hospitalization Ordered Hospitalization Status: Inpatient Admission rn Provider: Anton West rn [facility] Condition: Stable rn Problem: new rn Symptoms: have improved rn Bed/Room Type: Standard rn Room Assignment: 223(04/20/21 22:39) Diagnosis - Hematemesis rn - Anemia, unspecified rn - Upper abdominal pain, unspecified rn Forms: - Medication Reconciliation Form rn - SBAR form rn Signatures: Dispatcher [employer] EDMiesha Posadas RN RN mw Anderson, Corey, MD MD cha Nieto, Roman, MD MD rn Pena, Laura, RN RN lp1 Sophia Sylvester RN RN Dunia Ross RN RN ha Fillers, Samantha, RN RN sf1 Corrections: (The following items were deleted from the chart) 22:39 21:16 rn mw
--- NOTE | 2021-04-20 22:50 | P.HP ---
Certification for Inpatient Patient admitted to: Inpatient With expected LOS: >2 Midnights Patient will require the following post-hospital care: None Practitioner: I am a practitioner with admitting privileges, knowledge of patient current condition, hospital course, and medical plan of care. Services: Services provided to patient in accordance with Admission requirements found in Title 42 Section 412.3 of the Code of Federal Regulations Patient History Date of Service: 04/20/21 Primary Care Provider: Dr. Isaacs Reason for admission: Upper GI bleed History of Present Illness: 80-year-old female with history of hypertension, epilepsy and dementia presents the emergency department for upper GI bleed. Patient reports 3 episodes of vomiting today 1 with bright red blood and 2 with coffee-ground emesis. Patient was evaluated in the emergency department labs were significant for hemoglobin 7.9 hematocrit 25.[address] abdomen pelvis unremarkable aside from incidental finding 3.6 cm right adrenal mass. Patient was started on Protonix drip 1 unit of packed red blood cells ordered for transfusion. I spoke with gastroenterology while patient was in the emergency department who plans for EGD tomorrow. Patient n.p.o. at this time will admit for further evaluation and management. - Past Medical/Surgical History -: Hypertension -: Dementia -: Epilepsy -: Hip surgery -: Knee surgery -: Cholecystectomy Psychosocial/ Personal History: Patient is retired, lives at home with daughter - Family History Father -: Stroke Sister -: Cancer - Social History Smoking Status: Never smoker Alcohol use: No CD- Drugs: No Caffeine use: Yes Place of Residence: Home Review of Systems 10-point ROS is otherwise unremarkable Gastrointestinal: Nausea, Vomiting, Other (Hematemesis) Physical Examination - Physical Exam General: Alert, In no apparent distress, Oriented x3 HEENT: Atraumatic, PERRLA, Other (Mucous membranes pale), EOMI, Sclerae nonicteric Neck: Supple, 2+ carotid pulse no bruit, No LAD, Without JVD or thyroid abnormality Respiratory: Clear to auscultation bilaterally, Normal air movement Cardiovascular: Regular rate/rhythm, Normal S1 S2 Gastrointestinal: Normal bowel sounds, No tenderness, No rebound, No guarding Musculoskeletal: No tenderness Integumentary: No rashes Neurological: Normal speech, Normal strength at 5/5 x4 extr, Normal tone, Normal affect - Studies Laboratory Data (last 24 hrs) 04/20/21 19:32: APTT 24.7 04/20/21 18:55: PT 10.9, INR 0.95 04/20/21 18:55: WBC 11.70 H, Hgb 7.9 L, Hct 25.0 L, Plt Count 319 04/20/21 18:55: Sodium 136, Potassium 4.2, BUN 27 H, Creatinine 0.94, Glucose 169 H, Magnesium 2.0, Total Bilirubin 0.2, AST 9 L, ALT 19, Alkaline Phosphatase 121 H Assessment and Plan - Plan Assessment: Acute blood loss anemia secondary to upper GI bleed Hypertension Dementia Incidental finding 3.6 cm right adrenal mass Plan: Acute blood loss anemia secondary to upper GI bleed: Patient to be transfused 1 unit packed red blood cells at this time we will repeat H&H every 6 hours. Patient on Protonix drip GI consulted and aware. Blood pressure/heart rate stable at this time will admit to the floor for further management. N.p.o. anticipate EGD. Hypertension: Hold p.o. medications at this time will provide as needed medication IV. Dementia: Restart home medications when appropriate Incidental finding 3.6 cm right adrenal mass: Patient made aware of finding, recommendation is for outpatient MRI. DVT PPX: SCDs Code status: Full code Discharge Plan: Home Plan to discharge in: 48 Hours - Advance Directives Does patient have a Living Will: No Does patient have a Durable POA for Healthcare: No - Code Status/Comfort Care Code Status Assessed: Yes (Full code) Critical Care: No Time Spent Managing Pts Care (In Minutes): 55
[2021-04-20] MEDS: PANTOPRAZOLE INJ 80 MG in NA CHLORIDE 0.9% 250 ML IV SCH (23:10)
[2021-04-20] MEDS: NA CHLORIDE 0.9% 1,000 ML IV SCH (23:10)
[2021-04-21 00:55] VITALS: BMI 25.2
[2021-04-21] MEDS ORDERED: ONDANSETRON 4 MG/2 ML VIAL IV PRN (01:00)
[2021-04-21] MEDS: NA CHLORIDE 0.9% 1,000 ML IV SCH ×3 (03:24→15:21)
[2021-04-21 04:32] LABS: Hematocrit 23.7 % (36.0-45.0); Lymphocytes % 11.6 % (15.3-44.8); MPV 6.3 fL (7.6-11.3); RBC Red Blood Cell Count 2.81 M/uL (3.86-4.86)
[2021-04-21 04:37] LABS: Protime INR 0.97
[2021-04-21 04:52] LABS: Albumin 2.9 g/dL (3.4-5.0); Bilirubin Total 0.8 mg/dL (0.2-1.0); Potassium 4.3 mmol/L (3.5-5.1)
--- NOTE | 2021-04-21 06:08 | P.PN ---
Subjective Date of Service: 04/21/21 Primary Care Provider: Dr. Isaacs Chief Complaint: Upper GI bleed Subjective: Doing well Physical Examination - Vital Signs Temperature: 98.1 F Blood Pressure: 130/62 Pulse: 90 Respirations: 19 Pulse Ox (%): 98 - Studies Laboratory Data (last 24 hrs) 04/20/21 19:32: APTT 24.7 04/20/21 18:55: PT 10.9, INR 0.95 04/20/21 18:55: WBC 11.70 H, Hgb 7.9 L, Hct 25.0 L, Plt Count 319 04/20/21 18:55: Sodium 136, Potassium 4.2, BUN 27 H, Creatinine 0.94, Glucose 169 H, Magnesium 2.0, Total Bilirubin 0.2, AST 9 L, ALT 19, Alkaline Phosphatase 121 H Assessment & Plan Discharge Plan: Home Plan to discharge in: 24 Hours Physician Review Additional Text: COVID: Negative CT Ab: FINDINGS: Several tiny hepatic cysts. Spleen, pancreas and left adrenal gland are unremarkable. 3.6 centimeter right adrenal mass. Small renal cysts. Cortical thinning involves the left kidney. Calcified plaque proximal left renal artery results in a moderate stenosis. Cholecystectomy. Common bile duct is dilated. Bilateral hip arthroplasties. Artifact from the hardware obscures evaluation of portions of lower pelvis. Ventral hernia to the left of midline contains a small portion of stomach. No obstruction. The neck measures 2 centimeters. Smaller ventral hernia to the right of midline at this level. There is no evidence of diverticulitis. Small hiatal hernia IMPRESSION: Prominence of the common bile duct. This may be a normal finding in elderly patient status post cholecystectomy. Pathology such as stricture or nonvisualized stone can also result in this appearance and should be correlated clinically with appropriate lab values 3.6 centimeter right adrenal mass may represent an adenoma or malignancy. Nonemergent MRI recommended for further evaluation Left renal cortical thinning could be secondary to prior inflammation or ischemia. Ventral hernias as described above CXR: COMPARISON: 2016 FINDINGS: The lungs appear clear of acute infiltrate. The heart is mildly enlarged IMPRESSION: No acute abnormalities displayed EGD: Yanelis-Gomes tear, AVM. Physical exam: General: Alert, In no apparent distress, Oriented x3 HEENT: Atraumatic, PERRLA, Other (Mucous membranes pale), EOMI, Sclerae nonicteric Neck: Supple, 2+ carotid pulse no bruit, No LAD, Without JVD or thyroid abnormality Respiratory: Clear to auscultation bilaterally, Normal air movement Cardiovascular: Regular rate/rhythm, Normal S1 S2 Gastrointestinal: Normal bowel sounds, No tenderness, No rebound, No guarding Musculoskeletal: No tenderness Integumentary: No rashes Neurological: Normal speech, Normal strength at 5/5 x4 extr, Normal tone, Normal affect Impression: Acute blood loss anemia secondary to upper GI bleed 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 Continue with Protonix. GI to start Full liquid. Advance to GI soft tomorrow. We will monitor hemoglobin. Case discussed with GI who performed EGD. EGD showed Yanelis-Gomes tear and AVM. These were treated. No bleeding identified. Continue Protonix twice daily. Will advance diet. If stable by tomorrow we will plan for discharge home. Patient will require repeat EGD in 4 weeks. Hypertension: Hold Olmesartan. Restart Norvasc at reduced dose. Will continue to adjust Dementia: Continue home medication-Namenda 10 mg BID. Depression: Restart Paxil 10 daily. Incidental finding 3.6 cm right adrenal mass: Patient made aware of finding, recommendation is for outpatient MRI. DVT PPX: SCDs Code status: Full code Discharge Plan: Home at discharge Time Spent Managing Pts Care (In Minutes): 55
[2021-04-21 07:20] LABS: Urine Appearance CLOUDY (Clear); Urine Bilirubin NEGATIVE (Negative); Urine Blood NEGATIVE (Negative); Urine Color YELLOW (Yellow); Urine Glucose NEGATIVE (Negative); Urine Microscopic Reflex ORDER UMIC; Urine Protein NEGATIVE (Negative); Urine Urobilinogen 0.2 mg/dL (0.2-1.0); Urine pH 6.5 (5.0-7.0)
[2021-04-21 07:31] LABS: Urine Bacteria >50 /HPF (<20); Urine RBC NONE SEEN /HPF (NONE SEEN)
[2021-04-21] MEDS ORDERED: INFLUENZA VACCINE (for 6+ mo) 0.5 ML DOSE IMVAC ONE (08:00)
[2021-04-21] MEDS ORDERED: PNEUMOCOCCAL VACCINE 0.5 ML IMVAC ONE (08:00)
[2021-04-21 10:10] LABS: Hematocrit 22.3 % (36.0-45.0)
[2021-04-21] MEDS: PANTOPRAZOLE INJ 80 MG in NA CHLORIDE 0.9% 250 ML IV SCH ×2 (10:21→19:10)
[2021-04-21] MEDS ORDERED: NA CHLORIDE 0.9% 250 ML ONE (11:35)
[2021-04-21] MEDS ORDERED: propofoL 200 MG/20 ML VIAL IV ONE (12:46)
[2021-04-21] MEDS ORDERED: LIDOCAINE 1% MPF 5 ML VIAL ONE (12:46)
[2021-04-21] MEDS ORDERED: EPINEPHRINE/PF 1 MG/ML AMP ONE (13:04)
[2021-04-21] MEDS: MORPHINE 4 MG/ML SYR ONE ×4 (13:40→14:05)
[2021-04-21] MEDS ORDERED: FUROSEMIDE 20 MG/ 2ML VIAL IV ONE (16:00)
[2021-04-21] MEDS: MEMANTINE HCL 10 MG TABLET PO SCH (20:25)
[2021-04-21] MEDS: VITAMIN D 400 UNIT TAB PO SCH (20:25)
[2021-04-21 20:35] VITALS: O2SAT 99
[2021-04-21] MEDS ORDERED: C E ZINC COPPER PO SCH (21:00)
[2021-04-21] MEDS ORDERED: LUT PO SCH (21:00)
[2021-04-21] MEDS ORDERED: OMEGA3S PO SCH (21:00)
[2021-04-21] MEDS ORDERED: [UNRECOGNIZED DRUG - OTHER] PO SCH (21:00)
[2021-04-22] MEDS: PANTOPRAZOLE INJ 80 MG in NA CHLORIDE 0.9% 250 ML IV SCH (00:32)
--- NOTE | 2021-04-22 03:55 | EKG ---
Test Date: 2021-04-20 Test Time: 18:54:59 Medical Scientific Officer: ADINA MEASUREMENT RESULTS: Intervals: Rate: 102 UT: 156 QRSD: 88 QT: 348 QTc: 453 [place]: P: 72 UT: 156 QRS: 44 T: 48 INTERPRETIVE STATEMENTS: Sinus tachycardia with premature atrial complexes Otherwise normal ECG No previous ECG available for comparison Electronically Signed On 04-22-21 03:54:14 FIELD CROPS HARVEST MACHINE OPERATOR by Fritz Prieto
[2021-04-22 05:55] LABS: Absolute Lymphocytes (CBC) 0.7 K/uL (0.7-4.9); Hematocrit 25.3 % (36.0-45.0); Lymphocytes % 25.6 % (15.3-44.8); MPV 6.5 fL (7.6-11.3); RBC Red Blood Cell Count 3.02 M/uL (3.86-4.86)
--- NOTE | 2021-04-22 05:55 | P.DS ---
Admission Date: 04/20/21 Discharge Date: 04/22/21 Primary Care Provider: Dr. Isaacs Disposition: ROUTINE DISCHARGE Discharge Condition: GOOD Reason for Admission: Upper GI bleed Consultations: GI-Dr. Benoit Procedures: COVID: Negative CT Ab: FINDINGS: Several tiny hepatic cysts. Spleen, pancreas and left adrenal gland are unremarkable. 3.6 centimeter right adrenal mass. Small renal cysts. Cortical thinning involves the left kidney. Calcified plaque proximal left renal artery results in a moderate stenosis. Cholecystectomy. Common bile duct is dilated. Bilateral hip arthroplasties. Artifact from the hardware obscures evaluation of portions of lower pelvis. Ventral hernia to the left of midline contains a small portion of stomach. No obstruction. The neck measures 2 centimeters. Smaller ventral hernia to the right of midline at this level. There is no evidence of diverticulitis. Small hiatal hernia IMPRESSION: Prominence of the common bile duct. This may be a normal finding in elderly patient status post cholecystectomy. Pathology such as stricture or nonvisualized stone can also result in this appearance and should be correlated clinically with appropriate lab values 3.6 centimeter right adrenal mass may represent an adenoma or malignancy. Nonemergent MRI recommended for further evaluation Left renal cortical thinning could be secondary to prior inflammation or ischemia. Ventral hernias as described above CXR: COMPARISON: 2016 FINDINGS: The lungs appear clear of acute infiltrate. The heart is mildly enlarged IMPRESSION: No acute abnormalities displayed EGD: Yanelis-Gomes tear, AVM. 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 Patient reports 3 episodes of vomiting. She noted hematic emesis. Patient was evaluated emergency room. Hemoglobin 7.9. CT scan showed no significant acute abnormality. Patient was started on a Protonix drip. GI was consulted. Patient admitted for further evaluation and treatment. Hospital Course: Patient presented with hematemesis. Patient found to have acute blood loss anemia related to upper GI bleed. Patient was admitted for treatment. Patient received transfusion of blood with improvement. GI was consulted to further evaluate. GI recommended EGD to further evaluate. Patient was found to have Yanelis-Gomes tear and AVM. Both were treated. No further bleeding identified. Patient has tolerated diet thereafter. GI recommends to continue Protonix 40 mg 1 pill twice daily. Patient will continue with a soft diet for at least 1 week then advance to heart healthy. GI recommends follow-up in 4 weeks for repeat EGD. Instructions given to patient and daughter. Case discussed in detail with her neurologist as patient is taking Plavix 75 mg daily for prior TIA. Recommend to hold Plavix for at least 1 week then restart. Recommend follow-up with PCP to further monitor and follow-up this hospitalization. Recommend to recheck labCBC in 1 to 2 weeks to monitor progress. Patient with hypertension. Stable. She may continue Norvasc 10 mg daily and irbesartan 300 mg daily. Recommend to maintain blood pressure less than 130/80. Further dyspnea could be done by her PCP. Patient with dementia. At discharge patient will continue with Namenda 10 mg 1 pill twice daily. Patient is seen by neurology. Case discussed with neurology. Overall stable. Patient with depression. At discharge we will continue with Paxil 10 mg daily. Patient with history of seizure disorder. At discharge we will continue with her medicationphenytoin 100 mg daily. Case discussed with neurology. Patient with history of TIA in the past. Patient currently takes Plavix 75 mg daily. Case discussed in detail with neurology. Recommend to hold Plavix for at least 1 week then restart due to above. CT scan revealed 3.6 cm right adrenal mass. Recommend outpatient MRI to further evaluate. This can be done with the help of her PCP. Vital Signs/Physical Exam: Temp Pulse Resp BP Pulse Ox 97.1 F 82 17 144/67 H 95 04/22/21 00:00 04/22/21 00:00 04/22/21 00:00 04/22/21 00:00 04/22/21 00:00 General: Alert, In no apparent distress, Cooperative HEENT: Atraumatic Neck: Supple Respiratory: Clear to auscultation bilaterally, Normal air movement Cardiovascular: Normal pulses, Regular rate/rhythm Gastrointestinal: Normal bowel sounds, No tenderness, No masses, No rebound, No guarding Musculoskeletal: No erythema, No tenderness, No warmth Integumentary: No tenderness/swelling, No erythema, No warmth, No cyanosis Neurological: Normal speech, Normal strength at 5/5 x4 extr, Normal tone, Normal affect Laboratory Data at Discharge: WBC 8.30 K/uL (4.3-10.9) D 04/21/21 04:03 Hgb 8.4 g/dL (12.0-15.0) L 04/21/21 21:40 Hct 26.0 % (36.0-45.0) L 04/21/21 21:40 Plt Count 296 K/uL (152-406) 04/21/21 04:03 PT 11.1 SECONDS (9.5-12.5) 04/21/21 04:03 INR 0.97 04/21/21 04:03 APTT 24.6 SECONDS (24.3-36.9) 04/21/21 04:03 Sodium 139 mmol/L (136-145) 04/21/21 04:03 Potassium 4.3 mmol/L (3.5-5.1) 04/21/21 04:03 BUN 20 mg/dL (7-18) H 04/21/21 04:03 Creatinine 0.89 mg/dL (0.55-1.3) 04/21/21 04:03 Glucose 105 mg/dL (74-106) 04/21/21 04:03 Magnesium 2.0 mg/dL (1.8-2.4) 04/20/21 18:55 Total Bilirubin 0.8 mg/dL (0.2-1.0) 04/21/21 04:03 AST 50 U/L (15-37) H 04/21/21 04:03 ALT 44 U/L (12-78) 04/21/21 04:03 Alkaline Phosphatase 119 U/L (45-117) H 04/21/21 04:03 Home Medications: Amlodipine [Norvasc*] 10 mg PO DAILY 04/21/21 C,E,Zinc,Copper 11/Zslzj5l/Lut [Eye Health Adult 50 Plus Sftgl] 1 cap PO BID 04/21/21 Cholecalciferol (Vitamin D3) [Vitamin D3] 10 mcg PO DAILY 04/21/21 Irbesartan 300 mg PO DAILY 04/21/21 Memantine HCl 10 mg PO BID 04/21/21 PARoxetine HCL [Paxil*] 10 mg PO DAILY 04/21/21 Phenytoin 100 mg PO DAILY 04/21/21 Clopidogrel Bisulfate [Plavix] 75 mg PO DAILY #30 tablet 04/22/21 Ferrous Sulfate [Iron] 325 mg PO BID #60 tablet 04/22/21 Pantoprazole [Protonix Tab] 40 mg PO BID #60 tab 04/22/21 New Medications: Ferrous Sulfate [Iron] 325 mg PO BID #60 tablet Clopidogrel Bisulfate [Plavix] 75 mg PO DAILY #30 tablet Pantoprazole [Protonix Tab] 40 mg PO BID #60 tab Physician Discharge Instructions: Patient presented with hematemesis. Patient found to have acute blood loss anemia related to upper GI bleed. Patient was admitted for treatment. Patient received transfusion of blood with improvement. GI was consulted to further evaluate. GI recommended EGD to further evaluate. Patient was found to have Yanelis-Gomes tear and AVM. Both were treated. No further bleeding identified. Patient has tolerated diet thereafter. GI recommends to continue Protonix 40 mg 1 pill twice daily. Patient will continue with a soft diet for at least 1 week then advance to heart healthy. GI recommends follow-up in 4 weeks for repeat EGD. Instructions given to patient and daughter. Case discussed in detail with her neurologist as patient is taking Plavix 75 mg daily for prior TIA. Recommend to hold Plavix for at least 1 week then restart. Recommend follow-up with PCP to further monitor and follow-up this hospitalization. Recommend to recheck labCBC in 1 to 2 weeks to monitor progress. Patient with hypertension. Stable. She may continue Norvasc 10 mg daily and irbesartan 300 mg daily. Recommend to maintain blood pressure less than 130/80. Further dyspnea could be done by her PCP. Patient with dementia. At discharge patient will continue with Namenda 10 mg 1 pill twice daily. Patient is seen by neurology. Case discussed with neurology. Overall stable. Patient with depression. At discharge we will continue with Paxil 10 mg daily. Patient with history of seizure disorder. At discharge we will continue with her medicationphenytoin 100 mg daily. Case discussed with neurology. Patient with history of TIA in the past. Patient currently takes Plavix 75 mg daily. Case discussed in detail with neurology. Recommend to hold Plavix for at least 1 week then restart due to above. CT scan revealed 3.6 cm right adrenal mass. Recommend outpatient MRI to further evaluate. This can be done with the help of her PCP. Diet: soft Activity: Ad jose juan Followup: Talat Isaacs MD [Primary Care Provider] - Time spent managing pt's care (in minutes): 55
[2021-04-22 06:00] LABS: Protime INR 1.01
[2021-04-22 06:08] LABS: Albumin 2.6 g/dL (3.4-5.0); Bilirubin Total 0.6 mg/dL (0.2-1.0); Potassium 3.9 mmol/L (3.5-5.1); Protein, Total 5.5 g/dL (6.4-8.2)
[2021-04-22] MEDS: NA CHLORIDE 0.9% 1,000 ML IV SCH (08:43)
[2021-04-22] MEDS: VITAMIN D 400 UNIT TAB PO SCH (08:44)
[2021-04-22] MEDS: MEMANTINE HCL 10 MG TABLET PO SCH (08:45)
[2021-04-22] MEDS ORDERED: PARoxetine HCL 10 MG TAB PO SCH (09:00)
[2021-04-22] MEDS ORDERED: OCUVITE (VIT A,C & E/LUTEIN/MINERAL) TABLET PO SCH (09:00)
[2021-04-22] MEDS ORDERED: AMLODIPINE 5 MG TAB PO SCH (09:00)
[2021-04-22] MEDS ORDERED: CHOLECALCIFEROL 10 MCG PO SCH (09:00)
[2021-04-22] MEDS ORDERED: POTASSIUM CL SA 10 MEQ TAB PO ONE (09:00)
[2021-04-22] MEDS ORDERED: PHENYTOIN ER 100 MG CAP PO SCH (09:00)
[2021-04-22] MEDS ORDERED: PHENYTOIN 100 MG/4 ML PO SCH (09:00)
[2021-04-22 12:36] VITALS: BP 149/73; TEMP 98.1
--- NOTE | 2021-05-27 21:11 | CON ---
Reason For Consultation: Upper GI bleed. History Of Presenting Illness: The patient is an 80-year-old woman with history of hypertension, dem entia, and epilepsy who was brought to the ER with complaints of upper GI bleed, few episodes of vomi ting bright red blood with coffee ground. Hemoglobin was 7.9, started on Protonix drip. GI consulte d. Past Medical History: As above. Past Surgical History: Hip surgery, knee surgery, cholecystectomy. Social History: No toxic habits. Family History: Noncontributory. Review of Systems: GI as in HPI, otherwise negative. Remainder of 10-point review of systems negative. Physical Examination: Vital Signs: Reviewed. The patient is normotensive, not tachycardic, not tachypneic, afebrile. HEENT: Head atraumatic, normocephalic. Pupils equally reactive. Neck: Supple. Chest: Clear to auscultation bilaterally. Abdomen: Soft, nontender, nondistended. Bowel sounds present. Extremities: No pedal edema. CVS: S1, S2. Laboratory Data: Reviewed. Hemoglobin 7.9 of importance, hematocrit 25, platelets of 319. Impression: This is an 80-year-old woman with acute upper gastrointestinal bleed. Differential incl udes peptic ulcer disease, severe esophagitis, and . Plan: Continue current management. PPI drip. We will schedule for EGD. The risks and complication s of the procedure which include, but are not limited to bleeding, infection, perforation, and anesth esia complications were discussed. The patient and family understand and agree. US/MODL Voice ID: [id number] Report ID: [id number]
--- NOTE | 2021-05-28 00:50 | OP ---
Surgeon: Cuba Benoit MD Procedure Performed: Esophagogastroduodenoscopy. Indication For Procedure: Upper GI bleed, melena. Plan For Anesthesia: Monitored anesthesia care. Complexity: Average. Technique: After obtaining informed consent from the patient, explaining the risks and complications , which include, but are not limited to bleeding, infection, perforation, anesthesia complications, t he patient was placed in the left lateral position and sedation was given. Subsequently, the scope w as advanced into the mouth and carefully guided up until the second portion of the duodenum. After t he completion of examination, scope and equipment were withdrawn and procedure terminated in a safe m bong. Findings: Esophagus: In the distal esophagus, a small hiatal hernia was seen; however, proximal to the hernia, there was a large tear consistent with a Yanelis-Gomes tear that was seen along with a vi sible vessel. This was treated with ablation. It was not actively bleeding at that time. Stomach: Mild patchy erythema seen. An AVM was seen in the body. This was ablated with APC as well . Duodenum: The bulb and second portion appeared normal. Complications: None. Tolerance To Anesthesia: Excellent. Postoperative Diagnosis: Yanelis-Gomes tear, gastric arteriovenous malformation, status post treatme nt, hiatal hernia, gastritis. Plan: Continue PPI, antireflux measures, avoid NSAIDs. Repeat EGD in 4 weeks as an outpatient. US/MODL Voice ID: [id number] Report ID: [id number]
== END 2021-04-22 13:10 | disposition home or self-care (01) | DRG 299 ==
LOC: ER 18:25 → ERHOLD 22:06 → 2ND 23:08
PROVIDERS: ADMIT Family Medicine; ATTEND Family Medicine
PROC: 0W3P8ZZ Control Bleeding in Gastrointestinal Tract, Via Natural or Artificial Opening Endoscopic (ICD-10-PCS; 2021-04-21)
PROC: 30233N1 Transfusion of Nonautologous Red Blood Cells into Peripheral Vein, Percutaneous Approach (ICD-10-PCS; principal; 2021-04-21 12:30)
DX: Q27.33 Arteriovenous malformation of digestive system vessel (principal); K22.6 Gastro-esophageal laceration-hemorrhage syndrome; D62 Acute posthemorrhagic anemia; I10 Essential (primary) hypertension; E27.9 Disorder of adrenal gland, unspecified; F03.90 Unspecified dementia, unspecified severity, without behavioral disturbance, psychotic disturbance, mood disturbance, and anxiety; F32.A Depression, unspecified; G40.909 Epilepsy, unspecified, not intractable, without status epilepticus; K29.70 Gastritis, unspecified, without bleeding; K44.9 Diaphragmatic hernia without obstruction or gangrene; Z86.73 Personal history of transient ischemic attack (TIA), and cerebral infarction without residual deficits; Z20.822 Contact with and (suspected) exposure to COVID-19
CPT/HCPCS: 36415; 36430; 71045; 74177; 80048; 80053; 80076; 80185; 81003; 81015; 83605; 83735; 83880; 84484; 85014; 85018; 85025; 85610; 85730; 86850; 86900; 86901; 87077; 87086; 87088; 87186; 93005; 96374; 96375; 99285; C9113; J0171; J1610; J1940; J2270; J2405; J2704; J7030; J7040; J7050; P9016; Q9967; U0003

== ENCOUNTER 2021-10-15 20:23 | Emergency (ER) | payer OTHER ==
--- NOTE | 2021-10-15 21:06 | RAD REPORT ---
EXAM DESCRIPTION: CT - Ct Stroke Brain Wo Cont - 10/15/2021 8:58 pm CLINICAL HISTORY: Right-sided weakness COMPARISON: 2020 TECHNIQUE: Computed axial tomography of the head was obtained. All CT scans are performed using dose optimization technique as appropriate and may include automated exposure control or mA/KV adjustment according to patient size. FINDINGS: An intracranial bleed is not seen . The ventricles are normal in caliber. No extra-axial fluid collection is noted. 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 Atherosclerotic disease Fluid within the sinuses/ mastoids is not seen. IMPRESSION: No acute intracranial abnormality is seen. If patient's symptoms persist MRI of the bra in would be recommended. Miesha of the emergency room was notified at 8:51 p.m. on October 15, 2021
[2021-10-15] MEDS ORDERED: TENECTEPLASE 50 MG/10 ML VIAL IV ONE (21:18)
--- NOTE | 2021-10-15 21:41 | RAD REPORT ---
EXAM DESCRIPTION: Dipak Single View10/15/2021 9:27 pm CLINICAL HISTORY: CVA COMPARISON: April 2021 FINDINGS: The lungs appear clear of acute infiltrate. The heart is normal size IMPRESSION: No acute abnormalities displayed
[2021-10-15 22:07] LABS: Absolute Lymphocytes (CBC) 1.7 K/uL (0.7-4.9); Hematocrit 23.3 % (36.0-45.0); Lymphocytes % 19.7 % (15.3-44.8); MCV 70.9 fL (80-100); MPV 6.3 fL (7.6-11.3); RBC Red Blood Cell Count 3.28 M/uL (3.86-4.86)
[2021-10-15] MEDS ORDERED: ONDANSETRON 4 MG/2 ML VIAL ONE (22:14)
[2021-10-15 22:22] LABS: Protime INR 0.87
--- NOTE | 2021-10-15 22:22 | ER ---
Nurse's Notes [facility] Name: Mary Mendoza Age: 80 yrs Sex: Female : 1940 Arrival Date: 10/15/2021 Time: 20:24 Bed 5 Private MD: Diagnosis: Cerebral Vascular Accident, Right Hemiparesis Presentation: 10/15 20:56 Chief complaint: Patient's son or daughter states: "She was sitting on toilet slumped tw5 over. It seemed like her whole right side wasn't working. At first I thought her legs had done numb from sitting on the toilet so long, but then I saw the drop on her face.". Coronavirus screen: Vaccine status: Patient reports being unvaccinated. Ebola Screen: Patient negative for fever greater than or equal to 101.5 degrees Fahrenheit, and additional compatible Ebola Virus Disease symptoms Patient denies exposure to infectious person. Patient denies travel to an Ebola-affected area in the 21 days before illness onset. An acute neurological deficit is present. The patient has been moved to a treatment area. Initial Sepsis Screen: Does the patient meet any 2 criteria? No. Patient's initial sepsis screen is negative. Does the patient have a suspected source of infection? No. Patient's initial sepsis screen is negative. Risk Assessment: Do you want to hurt yourself or someone else? Patient reports no desire to harm self or others. Onset of symptoms was October 15, 2021 at 07:00. 20:56 Method Of Arrival: Ambulatory tw5 20:56 Acuity: MJ 2 tw5 Triage Assessment: 21:03 The onset of the patients symptoms was October 15, 2021 at 19:00. General: Appears tw5 uncomfortable, Behavior is calm, cooperative. Pain: Denies pain. Neuro: Reports numbness in right side. Stroke Activation: Symptom onset < 3 hours Physician: Stroke Attending; Name: ; Notified At: ; Arrived At: Physician: Chief Stroke Resident; Name: ; Notified At: ; Arrived At: Physician: Stroke Resident; Name: ; Notified At: ; Arrived At: Physician: ED Attending; Name: ; Notified At: ; Arrived At: Physician: ED Resident; Name: ; Notified At: ; Arrived At: Historical: - Allergies: 21:03 Codeine; tw5 21:03 PENICILLINS; tw5 - Home Meds: 21:03 amlodipine 10 mg tab 1 tab once daily [Active]; paroxetine HCl 10 mg Oral tab 1 tab tw5 once daily [Active]; irbesartan 300 mg Oral tab 1 tab once daily [Active]; memantine 10 mg Oral tab 1 tab 2 times per day [Active]; Vitamin D Oral [Active]; pantoprazole 40 mg oral TbEC 1 tab once daily [Active]; Harry Aspirin oral [Active]; phenytoin 50 mg Oral chew 3 tabs daily [Active]; - PMHx: 21:03 Hypertensive disorder; Ulcer; Seizure; tw5 - Immunization history:: Flu vaccine is not up to date. - Social history:: Smoking status: Patient denies any tobacco usage or history of. Screenin:07 Abuse screen: Denies threats or abuse. Denies injuries from another. Nutritional tw5 screening: No deficits noted. Tuberculosis screening: No symptoms or risk factors identified. Patient has been NPO before screening. The patient exhibits slurred or garbled speech. The patient is exhibiting difficulty speaking. The patient does not exhibit difficulty understanding words. The patient is unable to swallow own secretions without drooling or the need for suction. Bedside swallow screening discontinued. Patient kept NPO until cleared by Speech Therapy or Physician. The patient failed the bedside swallow screening. The patient will be kept NPO until cleared by Speech Therapy or Physician. Provider notified of bedside swallow screening results: Ishmael Fuentes MD. Fall Risk None identified. Assessment: 21:07 failed The patient failed the bedside swallow screening. The patient will be kept NPO tw5 until cleared by Speech Therapy or Physician. 21:22 VAN Scoring: Arm Drift: Flaccid/no antigravity. Patient has been NPO before screening. tw5 The patient is alert, and able to follow commands. The patient exhibits slurred or garbled speech. The patient is exhibiting difficulty speaking. The patient does not exhibit difficulty understanding words. The patient is unable to swallow own secretions without drooling or the need for suction. Bedside swallow screening discontinued. Patient kept NPO until cleared by Speech Therapy or Physician. Provider notified of bedside swallow screening results: Ishmael Fuentes MD. 21:24 TNKase (Tenecteplase) Screening: Indications: Definite evidence of stroke, ischemic, tw5 embolic, or hypertensive: Yes. Treatment will start within 4.5 hours onset of symptoms: Yes. No evidence of intracranial hemorrhage or CT of head and no evidence of peripheral hemorrhage or recent CVA: Yes. Consent for thrombolytic therapy: Yes. 21:38 Reassessment: initiated transfer to [facility] for capacity. bb 22:04 General: Behavior is. GI: Pt is actively vomiting undigested food. tw5 Vital Signs: 20:56 BP 156 / 70; Pulse 84; Resp 18; Temp 97.2; Pulse Ox 100% on R/A; Weight 73 kg (M); tw5 Height 5 ft. 5 in. (165.10 cm); Pain 0/10; 22:05 BP 163 / 73; Pulse 98; Resp 18 S; Pulse Ox 100% on R/A; bb 20:56 Body Mass Index 26.78 (73.00 kg, 165.10 cm) tw5 NIH Stroke Scale Scores: 20:59 NIHSS Score: 14 mh7 21:22 NIHSS Score: 14 tw5 ED Course: 20:24 Patient arrived in ED. bp1 20:33 Patient has correct armband on for positive identification. Placed in gown. Bed in low mh5 position. Call light in reach. Side rails up X2. Adult w/ patient. Warm blanket given. 20:47 Ishmael Fuentes MD is Attending Physician. mh7 20:56 Haylie Sylvester is Primary Nurse. tw5 20:59 CT Stroke Brain w/o Contrast In Process Unspecified. EDMS 21:02 Triage completed. tw5 21:03 Arm band placed on right wrist. tw5 21:22 Espinal cath inserted, using sterile technique, 16 Fr., by tx, balloon inflated, urine tw5 specimen collected. returned clear yellow urine. Patient tolerated well. 21:28 Stroke CXR 1 View In Process Unspecified. EDMS 21:40 NGT: Removed intact. x 2 failed attempted Patient tolerated poorly. tw5 21:50 No provider procedures requiring assistance completed. tw5 21:50 Inserted saline lock: 20 gauge in right wrist, using aseptic technique. tw5 21:59 Inserted saline lock: 20 gauge in right antecubital area, using aseptic technique. tw5 Blood collected. 22:04 Basic Metabolic Panel Sent. tw5 22:04 Hepatic Function Sent. tw5 22:04 Lipase Sent. tw5 22:04 Magnesium Sent. tw5 22:04 CBC with Diff Sent. tw5 22:04 Protime (+inr) Sent. tw5 22:04 Ptt, Activated Sent. tw5 22:28 Patient transferred, IV remains in place. tw 22:29 COVID-19 SARS RT PCR (Document "Date of Onset" if Symptomatic) Sent. tw5 Administered Medications: 21:55 Drug: TNK FOR STROKE - Tenecteplase 0.25 mg/kg {Co-Signature: humza (Dilcia Taylor tw5 RN).} Route: IV; Rate: per protocol; Site: right wrist; :29 Follow up: Response: No adverse reaction; IV Status: Infusion continued tw5 22:12 Drug: Zofran (Ondansetron) 4 mg Route: IVP; Site: right wrist; tw5 :29 Follow up: Response: No adverse reaction tw5 Medication: 22:28 VIS not applicable for this client. tw Point of Care Testing: Blood Glucose: 21:03 Blood Glucose: 124 mg/dL; tw5 Ranges: Outcome: 22:21 ER care complete, transfer ordered by MD. morelos 22:27 Transferred by helicopter to [facility], Transfer form completed. X-rays sent tw5 w/ patient. 22:27 Transferred Note: Called report Spoke to Sukh. Gave them Vanessa (Daughters) number [phone] 22:27 Condition: stable 22:27 Instructed on the need for transfer. 22:28 Patient left the ED. tw5 NIH Stroke Scale - NIH Stroke Score Date: 10/15/2021 Time: 20:59 Total Score = 14 1a. Level of Consciousness (LOC) - 0(Alert) 1b. Level of Consciousness (LOC) (Month \\T\\ Age) - 0(Both) 1c. LOC Commands (Open \\T\\ Closes Eyes/Otolaryngology Nurse) - 0(Both) 2. Best Gaze (Lateral Gaze Paresis) - 0(Normal) 3. Visual Field Loss - 0(No visual loss) 4. Facial Palsy - 1(Minor Paralysis) 5a. Left Arm: Motor (10-second hold) - 0(No drift) 5b. Right Arm: Motor (10-second hold) - 4(No movement) 6a. Left Leg: Motor (5-second hold - always test supine) - 0(No drift) 6b. Right Leg: Motor (5-second hold - always test supine) - 4(No movement) 7. Limb Ataxia (finger/nose \\T\\ heel/ballard - test with eyes open) - 2(Present in two limbs) 8. Sensory Loss (pinprick arms/legs/face) - 1(Mild to moderate loss) 9. Best Language: Aphasia (description/naming/reading) - 1(Mild to moderate aphasia) 10. Dysarthria (speech clarity - read or repeat words) - 1(Mild to Moderate) 11. Extinction and Inattention (visual/tactile/auditory/spatial/personal) - 0(No abnormality) Initials: 7 NIH Stroke Scale - NIH Stroke Score Date: 10/15/2021 Time: 21:22 Total Score = 14 1a. Level of Consciousness (LOC) - 0(Alert) 1b. Level of Consciousness (LOC) (Month \\T\\ Age) - 0(Both) 1c. LOC Commands (Open \\T\\ Closes Eyes/Otolaryngology Nurse) - 0(Both) 2. Best Gaze (Lateral Gaze Paresis) - 0(Normal) 3. Visual Field Loss - 0(No visual loss) 4. Facial Palsy - 1(Minor Paralysis) 5a. Left Arm: Motor (10-second hold) - 0(No drift) 5b. Right Arm: Motor (10-second hold) - 4(No movement) 6a. Left Leg: Motor (5-second hold - always test supine) - 0(No drift) 6b. Right Leg: Motor (5-second hold - always test supine) - 4(No movement) 7. Limb Ataxia (finger/nose \\T\\ heel/ballard - test with eyes open) - 2(Present in two limbs) 8. Sensory Loss (pinprick arms/legs/face) - 1(Mild to moderate loss) 9. Best Language: Aphasia (description/naming/reading) - 1(Mild to moderate aphasia) 10. Dysarthria (speech clarity - read or repeat words) - 1(Mild to Moderate) 11. Extinction and Inattention (visual/tactile/auditory/spatial/personal) - 0(No abnormality) Initials: 5 Signatures: Dispatcher [employer] EDDilcia Victor, Ashely Martinez RN [facility] Lexy Acevedo Maurice, MD MD 7 Haylie Sylvester tw Dilcia Taylor RN bb Corrections: (The following items were deleted from the chart) 21:03 PSHx: None; 21:59 21:59 No provider procedures requiring assistance completed.
--- NOTE | 2021-10-15 22:23 | EDPHYS ---
Physician Documentation [facility] Name: Mary Mendoza Age: 80 yrs Sex: Female : 1940 Arrival Date: 10/15/2021 Time: 20:24 Bed 5 Private MD: ED Physician Ishmael Fuentes HPI: 10/15 20:59 This 80 yrs old Female presents to ER via Unassigned with complaints of S/S of Possible mh7 Stroke. 20:59 The patient's problem is reported as a facial droop, on right, dysphasia, slurred mh7 speech, slow speech, weakness, in the right upper extremity, in the right lower extremity. Onset: The symptoms/episode began/occurred today, last seen normal \\T\\ 1899. Duration: The episode is continuous. Context: the episode(s) was witnessed, by no one, symptoms became apparent occurred at home, occurred while the patient was sitting, Possible contributing factors include:. The symptoms are alleviated by nothing. The symptoms are aggravated by nothing. Associated signs and symptoms: Pertinent positives: headache, weakness, Pertinent negatives: abdominal pain, agitation, chest pain, combativeness, confusion, diaphoresis, diarrhea, dizziness, lightheadedness, nausea, numbness, palpitations, seizure, shortness of breath, tingling, vertigo, vomiting. Severity of symptoms: At their worst the symptoms were severe today, in the emergency department the symptoms are unchanged. Patient's baseline: Neuro: alert and fully oriented, Motor: no deficits, Ambulation: walks without assistance, Speech: normal. Family last saw patient in normal state \\T\\ 1899 then found patient with right sided weakness \\T\\ 1999.. Historical: - Allergies: 21:03 Codeine; tw5 21:03 PENICILLINS; tw5 - Home Meds: 21:03 amlodipine 10 mg tab 1 tab once daily [Active]; paroxetine HCl 10 mg Oral tab 1 tab tw5 once daily [Active]; irbesartan 300 mg Oral tab 1 tab once daily [Active]; memantine 10 mg Oral tab 1 tab 2 times per day [Active]; Vitamin D Oral [Active]; pantoprazole 40 mg oral TbEC 1 tab once daily [Active]; Harry Aspirin oral [Active]; phenytoin 50 mg Oral chew 3 tabs daily [Active]; - PMHx: 21:03 Hypertensive disorder; Ulcer; Seizure; tw5 - Immunization history:: Flu vaccine is not up to date. - Social history:: Smoking status: Patient denies any tobacco usage or history of. ROS: 20:59 Constitutional: Negative for fever, chills, and weight loss, Eyes: Negative for injury, mh7 pain, redness, and discharge, ENT: Negative for injury, pain, and discharge, Neck: Negative for injury, pain, and swelling, Cardiovascular: Negative for chest pain, palpitations, and edema, Respiratory: Negative for shortness of breath, cough, wheezing, and pleuritic chest pain, Abdomen/GI: Negative for abdominal pain, nausea, vomiting, diarrhea, and constipation, Back: Negative for injury and pain, : Negative for injury, bleeding, discharge, and swelling, Skin: Negative for injury, rash, and discoloration, Psych: Negative for depression, anxiety, suicide ideation, homicidal ideation, and hallucinations, Allergy/Immunology: Negative for hives, rash, and allergies, Endocrine: Negative for neck swelling, polydipsia, polyuria, polyphagia, and marked weight changes, Hematologic/Lymphatic: Negative for swollen nodes, abnormal bleeding, and unusual bruising. Exam: 20:59 Head/Face: Normocephalic, atraumatic. Eyes: Pupils equal round and reactive to light, mh7 extra-ocular motions intact. Lids and lashes normal. Conjunctiva and sclera are non-icteric and not injected. Cornea within normal limits. Periorbital areas with no swelling, redness, or edema. Neck: Trachea midline, no thyromegaly or masses palpated, and no cervical lymphadenopathy. Supple, full range of motion without nuchal rigidity, or vertebral point tenderness. No Meningismus. Chest/axilla: Normal chest wall appearance and motion. Nontender with no deformity. No lesions are appreciated. Cardiovascular: Regular rate and rhythm with a normal S1 and S2. No gallops, murmurs, or rubs. Normal PMI, no JVD. No pulse deficits. Respiratory: Lungs have equal breath sounds bilaterally, clear to auscultation and percussion. No rales, rhonchi or wheezes noted. No increased work of breathing, no retractions or nasal flaring. Abdomen/GI: Soft, non-tender, with normal bowel sounds. No distension or tympany. No guarding or rebound. No evidence of tenderness throughout. Back: No spinal tenderness. No costovertebral tenderness. Full range of motion. Skin: Warm, dry with normal turgor. Normal color with no rashes, no lesions, and no evidence of cellulitis. 20:59 Constitutional: The patient appears in no acute distress, alert, awake. 20:59 Musculoskeletal/extremity: ROM: right hemiparesis, Circulation is intact in all extremities. numbness. 20:59 Neuro: Orientation: appropriate for stated age, Mentation: appropriate for stated age, Memory: 20:59 Neuro: Cranial nerves: facial droop noted on right, Speech is dysarthric, slowed, 7 Cerebellar function: dysmetria is noted on the right, the patient is unable to track right heel to left ballard, Motor: right hemiparesis, Sensation: numbness, that is mild, of the right arm and right leg, Gait: not tested. seizure activity, is not displayed by the patient, Abnormal movements: there are no abnormal movements. 21:10 Radiologist reports: No acute intracranial abnormality 7 Vital Signs: 20:56 BP 156 / 70; Pulse 84; Resp 18; Temp 97.2; Pulse Ox 100% on R/A; Weight 73 kg (M); tw5 Height 5 ft. 5 in. (165.10 cm); Pain 0/10; 22:05 BP 163 / 73; Pulse 98; Resp 18 S; Pulse Ox 100% on R/A; bb 20:56 Body Mass Index 26.78 (73.00 kg, 165.10 cm) 5 NIH Stroke Scale Scores: 20:59 NIHSS Score: 14 7 21:22 NIHSS Score: 14 tw5 MDM: 22:13 Differential diagnosis: CVA, TIA, paralysis, metabolic disorder, drug effects. Data [facility] reviewed: vital signs, nurses notes, EMS record, old medical records, radiologic studies, CT scan, plain films. Data interpreted: Pulse oximetry: on room air is 100 %. Interpretation: normal. Counseling: I had a detailed discussion with the patient and/or guardian regarding: the historical points, exam findings, and any diagnostic results supporting the discharge/admit diagnosis, the presence of at least one elevated blood pressure reading (>120/80) during this emergency department visit, radiology results, the need to transfer to another facility, for higher level of care. Response to treatment: the patient's symptoms have mildly improved after treatment. Physician consultation: Alfredo Earl MD was contacted at 21:10, regarding patient's condition, after a discussion of the case, a recommendation for transfer for higher level of care is made, TNKase and transfer to [facility]. ED course: Contacted [facility] but no beds available.. 22:21 Patient medically screened. [facility] 10/15 20:50 Order name: Basic Metabolic Panel [facility] 10/15 20:50 Order name: CBC with Diff [facility] 10/15 20:50 Order name: Hepatic Function [facility] 10/15 20:50 Order name: Lipase [facility] 10/15 20:50 Order name: Magnesium [facility] 10/15 20:50 Order name: Protime (+inr) [facility] 10/15 20:50 Order name: Ptt, Activated [facility] 10/15 20:50 Order name: CT Stroke Brain w/o Contrast; Complete Time: 21:26 [facility] 10/15 20:50 Order name: Stroke CXR 1 View; Complete Time: 21:56 [facility] 10/15 20:50 Order name: Troponin High Sensitivity [facility] 10/15 20:51 Order name: COVID-19 SARS RT PCR (Document "Date of Onset" if Symptomatic) [facility] 10/15 21:21 Order name: Glucose, Ancillary Testing; Complete Time: 21:26 [facility] 10/15 22:25 Order name: Urine Dipstick-Ancillary [facility] 10/15 20:50 Order name: EKG; Complete Time: 20:51 [facility] 10/15 20:50 Order name: Accucheck; Complete Time: 22:03 [facility] 10/15 20:50 Order name: Cardiac monitoring; Complete Time: 22:03 [facility] 10/15 20:50 Order name: EKG - Nurse/Tech; Complete Time: 22:16 [facility] 10/15 20:50 Order name: IV Saline Lock; Complete Time: 22:04 [facility] 10/15 20:50 Order name: Labs collected and sent; Complete Time: 22:03 [facility] 10/15 20:50 Order name: NPO; Complete Time: 22:03 [facility] 10/15 20:50 Order name: O2 Per Protocol; Complete Time: 22:03 [facility] 10/15 20:50 Order name: O2 Sat Monitoring; Complete Time: 22:04 [facility] 10/15 20:50 Order name: Stroke Swallow Screen; Complete Time: 21:06 [facility] 10/15 20:51 Order name: Urine Dipstick-Ancillary (obtain specimen) [facility] 10/15 21:07 Order name: CT Neck Angio [facility] Administered Medications: 21:55 Drug: TNK FOR STROKE - Tenecteplase 0.25 mg/kg {Co-Signature: humza (Dilcia Taylor tw5 RN).} Route: IV; Rate: per protocol; Site: right wrist; 22:29 Follow up: Response: No adverse reaction; IV Status: Infusion continued tw5 22:12 Drug: Zofran (Ondansetron) 4 mg Route: IVP; Site: right wrist; tw5 22:29 Follow up: Response: No adverse reaction tw5 Point of Care Testing: Blood Glucose: 21:03 Blood Glucose: 124 mg/dL; tw5 Ranges: Critical Glucose Levels:Adult <50 mg/dl or >400 mg/dl <40 mg/dl or >180 mg/dl Disposition Summary: 10/15/21 22:21 Transfer Ordered Transfer Location: [place] [id number] Reason: Higher level of care [facility] Condition: Serious [facility] Problem: new [facility] Symptoms: have improved [facility] Accepting Physician: Dr. Solis(10/15/21 22:28) tw5 Diagnosis - Cerebral Vascular Accident, Right Hemiparesis [facility] Forms: - Medication Reconciliation Form [facility] - SBAR form [facility] NIH Stroke Scale - NIH Stroke Score Date: 10/15/2021 Time: 20:59 Total Score = 14 1a. Level of Consciousness (LOC) - 0(Alert) 1b. Level of Consciousness (LOC) (Month \\T\\ Age) - 0(Both) 1c. LOC Commands (Open \\T\\ Closes Eyes/Insulating Machine Operator) - 0(Both) 2. Best Gaze (Lateral Gaze Paresis) - 0(Normal) 3. Visual Field Loss - 0(No visual loss) 4. Facial Palsy - 1(Minor Paralysis) 5a. Left Arm: Motor (10-second hold) - 0(No drift) 5b. Right Arm: Motor (10-second hold) - 4(No movement) 6a. Left Leg: Motor (5-second hold - always test supine) - 0(No drift) 6b. Right Leg: Motor (5-second hold - always test supine) - 4(No movement) 7. Limb Ataxia (finger/nose \\T\\ heel/ballard - test with eyes open) - 2(Present in two limbs) 8. Sensory Loss (pinprick arms/legs/face) - 1(Mild to moderate loss) 9. Best Language: Aphasia (description/naming/reading) - 1(Mild to moderate aphasia) 10. Dysarthria (speech clarity - read or repeat words) - 1(Mild to Moderate) 11. Extinction and Inattention (visual/tactile/auditory/spatial/personal) - 0(No abnormality) Initials: 7 NIH Stroke Scale - NIH Stroke Score Date: 10/15/2021 Time: 21:22 Total Score = 14 1a. Level of Consciousness (LOC) - 0(Alert) 1b. Level of Consciousness (LOC) (Month \\T\\ Age) - 0(Both) 1c. LOC Commands (Open \\T\\ Closes Eyes/Insulating Machine Operator) - 0(Both) 2. Best Gaze (Lateral Gaze Paresis) - 0(Normal) 3. Visual Field Loss - 0(No visual loss) 4. Facial Palsy - 1(Minor Paralysis) 5a. Left Arm: Motor (10-second hold) - 0(No drift) 5b. Right Arm: Motor (10-second hold) - 4(No movement) 6a. Left Leg: Motor (5-second hold - always test supine) - 0(No drift) 6b. Right Leg: Motor (5-second hold - always test supine) - 4(No movement) 7. Limb Ataxia (finger/nose \\T\\ heel/ballard - test with eyes open) - 2(Present in two limbs) 8. Sensory Loss (pinprick arms/legs/face) - 1(Mild to moderate loss) 9. Best Language: Aphasia (description/naming/reading) - 1(Mild to moderate aphasia) 10. Dysarthria (speech clarity - read or repeat words) - 1(Mild to Moderate) 11. Extinction and Inattention (visual/tactile/auditory/spatial/personal) - 0(No abnormality) Initials: tw5 Signatures: Dispatcher [employer] Ishmael Dupont MD MD 7 Haylie Sylvester 5 Dilcia Taylor RN bb Corrections: (The following items were deleted from the chart) 21: 21:03 PSHx: None; tw5 tw5 22:28 22:21 Dr. Solis mh7 tw5
[2021-10-15 22:24] LABS: Urine Blood Negative (Negative); Urine Glucose Negative (Negative); Urine Protein Negative (Negative); Urine Specific Gravity 1.015 (1.005-1.030); Urine pH 5.5 (5.0-7.0)
[2021-10-15 22:26] LABS: ALT/SGPT 17 U/L (12-78); AST/SGOT 9 U/L (15-37); Albumin 3.7 g/dL (3.4-5.0); Alkaline Phosphatase 136 U/L (45-117); BUN Blood Urea Nitrogen 21 mg/dL (7-18); Bicarbonate 22 mmol/L (21-32); Bilirubin Total 0.2 mg/dL (0.2-1.0); Glomerular Filtration Rate 55 ml/min (=/>90); Glucose Level 131 mg/dL (74-106); Lipase 398 U/L (73-393); Magnesium 2.3 mg/dL (1.8-2.4); Potassium 4.4 mmol/L (3.5-5.1); Protein, Total 7.5 g/dL (6.4-8.2); Sodium Level 137 mmol/L (136-145); Troponin High Sensitivity 9.8 pg/mL (<58.9)
[2021-10-15 22:28] LABS: Bilirubin Direct < 0.1 mg/dL (0-0.2)
[2021-10-15 22:38] VITALS: TEMP 97.2; O2SAT 100
[2021-10-15 22:40] VITALS: BP 163/73
--- NOTE | 2021-10-17 14:42 | EKG ---
Test Date: 2021-10-15 Test Time: 22:16:47 Slide Forming Machine Tender: TOYA MEASUREMENT RESULTS: Intervals: Rate: 93 TN: 178 QRSD: 76 QT: 340 QTc: 422 [place]: P: 63 TN: 178 QRS: 46 T: 40 INTERPRETIVE STATEMENTS: Sinus rhythm with premature atrial complexes Otherwise normal ECG Compared to ECG 04/20/2021 18:54:59 Sinus tachycardia no longer present Electronically Signed On 10-17-21 14:41:07 CDT by Fritz Prieto
--- NOTE | 2021-10-18 12:48 | EKG ---
Test Date: 2021-10-15 Test Time: 22:17:12 [employer] Consultant: TOYA MEASUREMENT RESULTS: Intervals: Rate: 92 ID: [id number] QRSD: 84 QT: 344 QTc: 425 [place]: P: 51 ID: [id number] QRS: 38 T: 29 INTERPRETIVE STATEMENTS: Normal sinus rhythm with sinus arrhythmia Normal ECG Compared to ECG 10/15/2021 22:16:47 Atrial premature complex(es) no longer present Electronically Signed On 10-18-21 12:43:51 CDT by Kermit Mckenzie
== END 2021-10-15 22:28 | disposition short-term general hospital (02) ==
LOC: ER 20:23
DX: I63.9 Cerebral infarction, unspecified (principal); G81.91 Hemiplegia, unspecified affecting right dominant side; I10 Essential (primary) hypertension; R29.714 NIHSS score 14; Z20.822 Contact with and (suspected) exposure to COVID-19; Z79.82 Long term (current) use of aspirin; Z88.0 Allergy status to penicillin; Z88.5 Allergy status to narcotic agent
CPT/HCPCS: 96365; 92977; 93005; 85025; 80048; 36415; 83735; 85610; 82947; 80076; 85730; 81003; 84484; 83690; 70450; 71045; 51702; 96375; 99285; U0003; J3101; J2405